=== PATIENT | male | born 1935 | race Caucasian/White ===

== ENCOUNTER 2019-06-25 13:00 | Emergency (ER) | payer MEDICARE, SELFPAY ==
--- NOTE | ~2019-06-25 | XR_ITS ---
EXAMINATION: XR chest 1V portable INDICATION: Shortness of breath and lightheadedness TECHNIQUE: Portable AP chest at 1352 hours COMPARISON: None available FINDINGS: There is subtle patchy opacities of the lung bases. Cardiomegaly is noted. No pleural effus ion or pneumothorax is identified. Median sternotomy wires and mediastinal surgical clips are seen, l ikely from prior coronary artery bypass grafting. IMPRESSION: 1. Bibasilar airspace opacities, consistent with atelectasis versus pneumonia. Reviewed, dictated and finalized at location B.
[2019-06-25 13:05] VITALS: BP 152/65; PULSE 82; RESP 18; TEMP 36.2; O2SAT 96
--- NOTE | 2019-06-25 13:33 | ECG_ITS ---
Measurements Intervals [place] Rate: 70 P: 53 [place]: 183 QRS: -19 QRSD: 137 T: 30 QT: 422 QTc: 457 Interpretive Statements SINUS RHYTHM WITH MARKED SINUS ARRHYTHMIA RIGHT BUNDLE BRANCH BLOCK BASELINE ARTIFACT- I, III, AVL ABNORMAL ECG Electronically Signed On 06-25-2019 14:50:43 CDT by Santiago Bateman D.O.
--- NOTE | 2019-06-25 13:45 | ED.DIZZY ---
HPI - Dizziness General Chief Complaint: Dizziness Stated Complaint: dizzy/weak Time Seen by Provider: 06/25/19 13:27 Source: patient and RN notes reviewed Mode of arrival: ambulatory Limitations: no limitations History of Present Illness HPI Narrative: Pt is a 83 y/o male with a Hx of CAD and a 5 vessel CABG, who presents to the ED with c/o intermittent dizziness starting several months ago. He notes that he has been experiencing SOB and dizziness upon exertion for the past several months. Pt describes his dizziness as lightheadedness. He states that he had been working in his yard for an hour yesterday when he suddenly had to stop due to him becoming too lightheaded. Pt notes that he also experiences lightheadedness with changes in position. He states that he became SOB while walking into the ED this afternoon. 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 Hodges, due to his symptoms, and states that he was advised to come to the ED. He also reports recent constipation, but denies any CP, chest pressure, cough, LE edema, or decreased intake. Pt is not currently taking any blood thinners. MD elicited complaint: dizziness Onset (ago): month(s) (several) Timing: episodic Description: lightheadedness Context: change in body position and exertion Exacerbating factors: change in body position and exertion Associated symptoms: other (dyspnea on exertion; constipation) Related Data Home Medications Medication Instructions Recorded Confirmed blood sugar diagnostic #10 each 05/28/19 donepezil 5 mg tablet 5 mg PO .QHS tablet 05/28/19 ezetimibe 10 mg tablet 10 mg PO DAILY 05/28/19 fenofibrate 160 mg tablet 160 mg PO DAILY 05/28/19 gabapentin 600 mg tablet 600 mg PO TID tablet 05/28/19 insulin lispro 100 unit/mL 5 unit SUB-Q .QAC ml 05/28/19 subcutaneous pen lancets #50 each 05/28/19 losartan 50 mg tablet 50 mg PO DAILY 05/28/19 metformin 500 mg tablet 500 mg PO BID 05/28/19 metoprolol tartrate 25 mg tablet 25 mg PO DAILY 05/28/19 sertraline 50 mg tablet 50 mg PO DAILY 05/28/19 simvastatin 20 mg tablet 20 mg PO DAILY 05/28/19 evolocumab 140 mg/mL subcutaneous 140 mg SUB-Q .Twice a Month ml 06/04/19 pen injector glipizide 5 mg PO DAILY 06/25/19 insulin degludec [Tresiba U-100 74 unit SUBCUT HS 06/25/19 Insulin] Allergies Allergy/AdvReac Type Severity Reaction Status Date / Time No Known Allergies Allergy Mild Unverified 06/25/19 14:19 Review of Systems Review of Systems: All systems reviewed & are unremarkable except as noted in HPI and below Constitutional: Constitutional: Denies other (decreased intake) Cardiovascular: Cardiovascular: Denies chest pain, Denies leg edema and Denies other (chest pressure) Respiratory: Respiratory: Denies cough and Reports dyspnea on exertion Gastrointestinal: Gastrointestinal: Reports constipation Neurologic: Reports dizziness PMFSH Past Medical History Medical History (Updated 06/25/19 @ 16:26 by Mitesh Mathis MD) 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 Chronic GERD Coronary artery disease involving [place] coronary artery of [place] heart Dementia Depression HLD (hyperlipidemia) HTN (hypertension) Squamous cell carcinoma in situ (SCCIS) Type 2 diabetes mellitus with diabetic neuropathy, unspecified Surgical History Surgical History H/O hernia repair S/P CABG (coronary artery bypass graft) Social History Social History Smoking packs per day: 1 Smoking cigarettes per day: 20.0 Years smoked: 30 Smoking pack-years: 30.00 Smoking status: Former smoker Tobacco type: cigarettes Second hand tobacco smoke exposure: No Smoking end date: 03/31/1966 Alcohol intake: current Drinks per week: 2 Substance use: never Substance use type: does not use Gender identity (if verbalized by the patient): Male Exam Narrative: Exam Narrative
[2019-06-25 13:56] LABS: Basophils Absolute Auto 0.1 K/mm3 (0.0-0.1); Basophils Percent Auto 0.7 % (0.2-1.2); Eosinophils Absolute Auto 0.1 K/mm3 (0-0.3); Eosinophils Percent Auto 0.8 % (0-4.4); Hematocrit 38.6 % (42.0-52.0); Immature Granulocyte Absolute 0.02 K/mm3 (0.00-0.031); Immature Granulocyte Percent A 0.2 % (0-0.5); Lymphocytes Absolute Auto 2.68 K/mm3 (0.9-3.2); Lymphocytes Percent Auto 28.2 % (18.3-44.2); Mean Corpuscular HGB Conc 33.7 g/dl (32-36); Mean Corpuscular Hemoglobin 32.9 pg (26-34); Mean Corpuscular Volume 97.7 fl (80-100); Mean Platelet Volume 9.5 fl (7.4-10.4); Monocytes Absolute Auto 0.8 K/mm3 (0.1-0.6); Monocytes Percent Auto 8.4 % (2.6-8.5); Neutrophils Absolute Auto 5.9 K/mm3 (1.3-6.7); Neutrophils Percent Auto 61.7 % (45.5-73.1); Platelet Count Result 273 k/mm3 (150-375); Red Blood Count 3.95 M/mm3 (4.6-6.20); Red Cell Distribution Width 12.8 % (11.5-14.5); White Blood Count 9.5 K/mm3 (4.5-10.0)
[2019-06-25 14:06] LABS: Prothrombin Time 13.1 Seconds (11.1-14.7)
[2019-06-25 14:08] LABS: Blood Urea Nitrogen 17 mg/dL (9-20); Calcium 9.2 mg/dL (8.4-10.2); Carbon Dioxide 24 mmol/L (22-30); Chloride 104 mmol/L (98-107); Estimated CRCL calculation 52 ml/min; Estimated Glomerular Filt Rate > 60; Glucose 185 mg/dL (75-110); Potassium 4.2 mmol/L (3.4-5.0); Sodium 135 mmol/L (137-145)
[2019-06-25 14:17] VITALS: BP 102/55; PULSE 78; RESP 16; O2SAT 97
[2019-06-25 14:18] VITALS: BP 128/72; PULSE 86; RESP 20; O2SAT 97
[2019-06-25 14:20] LABS: Troponin I < 0.012 ng/mL (0.000-0.034)
[2019-06-25 15:48] VITALS: BP 145/62; PULSE 78; RESP 12; O2SAT 98
[2019-06-25 16:24] VITALS: BP 131/99; PULSE 88; RESP 24; O2SAT 98
== END 2019-06-25 16:35 | disposition home or self-care (01) ==
PROVIDERS: Emergency Provider Emergency Medicine; PCP Family Medicine
DX: R42 Dizziness and giddiness (principal); R06.00 Dyspnea, unspecified; I25.10 Atherosclerotic heart disease of native coronary artery without angina pectoris; Z95.1 Presence of aortocoronary bypass graft; K22.70 Barrett's esophagus without dysplasia; K21.9 Gastro-esophageal reflux disease without esophagitis; F32.9 Major depressive disorder, single episode, unspecified; E78.5 Hyperlipidemia, unspecified; I10 Essential (primary) hypertension; E11.40 Type 2 diabetes mellitus with diabetic neuropathy, unspecified; Z79.4 Long term (current) use of insulin; Z79.84 Long term (current) use of oral hypoglycemic drugs; Z87.891 Personal history of nicotine dependence; I45.10 Unspecified right bundle-branch block; R94.31 Abnormal electrocardiogram [ECG] [EKG]; R91.8 Other nonspecific abnormal finding of lung field
CPT/HCPCS: 36415; 71045; 80048; 84484; 85025; 85610; 85730; 93005; 99284

== ENCOUNTER 2020-07-19 15:03 | Outpatient (CLI) | payer MEDICARE, SELFPAY ==
--- NOTE | ~2020-07-19 | XR_ITS ---
EXAMINATION: XR shoulder RT min 2V DATE: 07/19/2020 15:18 INDICATION: Right shoulder pain. TECHNIQUE: 4 views of right shoulder were obtained. COMPARISON: None. FINDINGS: Bone alignment is normal. No fracture. There is mild osteoarthritis of glenohumeral joint a nd severe osteoarthritis of acromioclavicular joint. Median sternotomy wires and mediastinal surgical clips are seen, likely from prior coronary artery bypass grafting. IMPRESSION: 1. Polyarticular osteoarthritis. Reviewed, dictated and finalized at location B.
== END 2020-07-19 15:04 | disposition home or self-care (01) ==
LOC: ANHIMG 15:06
PROVIDERS: PCP Family Medicine; Visit Provider Family Medicine
DX: M19.011 Primary osteoarthritis, right shoulder (principal)
CPT/HCPCS: 73030

== ENCOUNTER 2020-09-04 10:15 | Outpatient (RCR) | payer MEDICARE, SELFPAY ==
--- NOTE | 2020-08-23 13:38 | PTOPEVAL ---
PHYSICAL THERAPY EVALUATION Thank you for referring Antonio Fang to [facility] [place] Antonio was evaluated for the dx of right shoulder adhesive capsulitis. The patient is scheduled to be seen for therapy?2 x/week for 5 weeks. Please review, sign, date and return this plan of care SOLITARIO. I agree with and certify that the following plan of care is medically necessary. Referring Physician Date Attending Provider: Andrea Canales MD *PT Outpatient Evaluation Start: 08/23/20 12:30 Freq: Status: Active Protocol: Document 08/23/20 12:36 MLV (Rec: 08/23/20 13:06 [facility] [id number]) Therapy Assessment Status Assessment Status Assessment Status Evaluation Evaluation Information Problem Diagnosis right shoulder adhesive capsulitis Onset 1-2 month ago Cause none Additional Evaluation Detail Pt reports pain at right shoulder starting without an injury. The patient has pain at superior shoulder constantly. The patient is having a lot of trouble sleeping. Pt is retired and does the yardwork, otherwise no hobbies. The patient denies trouble with shoulder prior to 2 months ago. Diagnostic Tests X-Rays For This Problem Yes: mild OA Prior Level of Function Prior Cognition/Communication Prior Communication Level No Impairment Prior Cognitive Function Memory Impaired Pain Assessment Timing of Pain Assessment Timing of Pain Assessment Assessment Pain Scale Pain Scale Used Numeric (1 - 10) Self Report Pain Assessment Right Shoulder(s) Reported Pain Level 2 Pain Description Aching,Pressure,Sharp Pain Frequency Acute Greatest Pain Intensity 4 Pain Aggravating Factors Exercise/Activity,Lifting Other Pain Aggravating Factors sidelying Pain Score Pain Score 2: Self Report Interventions Used Interventions Used By Clinicians Education,Exercise,Heat Pain Relief Interventions Used By Heat,Inactivity/Rest,Position Patient Change Upper Extremity Range of Motion General Upper Extremity Range of Motion Gross Upper Extremity Range of Motion shoulder active motion: left- Comments flexion 155', abduction 165', extension 72', ER 68', IR 80' right flexion 125', abduction 94', extension 73', ER 39', IR 36' *cynthia elbows and w
--- NOTE | 2020-09-06 08:10 | PCPTNOTE ---
Patient did not show up for scheduled appointment this date; called and spoke with patient's who stated patient was already on his way for his appointment even though he knows he was late. Informed the front services agent to re-issue appointment schedule.
--- NOTE | 2020-09-12 08:28 | PCPTNOTE ---
Patient did not show up for scheduled appointment this date. Left voicemail about missed appointment and reminded Pt of upcoming appointment on 09/14/2020 @ 08:45am.
--- NOTE | 2020-09-14 09:14 | PCPTNOTE ---
Patient did not show up for scheduled appointment this date. Called and spoke with Pt's , she stated he forgot about his appointment. Pt's also informed they will be out of town until the beginning of September and needs to cancel his appointments for next week. Informed therapist. This is Pt's third N/S.
--- NOTE | 2020-10-06 10:35 | PCPTNOTE ---
PHYSICAL THERAPY DISCHARGE Attending Provider: Andrea Canales MD Patient:Antonio Fang Date of :1935 Patient has not returned for any further treatments since 09/04/2020, therefore he will be discharged at this time. Patient?s initial visit was on 08/23/2020 12:30 and he had a total of 2 visits. The goals have not been met. Memory deficits affect compliance in home and to show for appts. Thank you for referring this patient to [facility]. Please review, sign, date and return this discharge summary SOLITARIO. I have been updated about the patient's current status and I agree with discharge from the above service at this time. Referring Physician Date
== END 2020-11-07 13:52 | disposition home or self-care (01) ==
LOC: ANHPT 10:15
PROVIDERS: PCP Family Medicine; Visit Provider Orthopaedic Surgery
DX: M75.00 Adhesive capsulitis of unspecified shoulder (principal)
CPT/HCPCS: 97110; 97140; 97162

== ENCOUNTER 2020-11-04 15:25 | Emergency (ER) | payer MEDICARE, SELFPAY ==
[2020-11-04] VITALS (9 sets, daily range): BP systolic 127–163; BP diastolic 74–83; PULSE 62–77; RESP 12–20; TEMP 37.2; O2SAT 97–100
--- NOTE | ~2020-11-04 | CT_ITS ---
EXAMINATION: CT brain wo con DATE: 11/04/2020 16:12 INDICATION: Confusion. TECHNIQUE: Computed tomography (CT) of the head was performed without intravenous contrast. The mA wa s adjusted according to patient size. Iterative reconstruction technique was employed. The dose-lengt h product was 681.00 mGy-cm. COMPARISON: Head CT 12/30/2008 FINDINGS: There are scattered areas of low attenuation in the cerebral white matter, which is within normal limits for the patient's age. There is no intracranial hemorrhage, acute infarction, or abnorm al intracranial mass lesion. The ventricles are normal in size. There are likely changes of ocular le ns replacement surgeries. There is mild mucosal thickening in the paranasal sinuses. There is a trace right mastoid effusion. IMPRESSION: 1. Normal aging brain. Reviewed, dictated and finalized at location A. IMPRESSION: 1. Normal aging brain.
--- NOTE | ~2020-11-04 | XR_ITS ---
EXAMINATION: XR chest 2V DATE: 11/04/2020 16:07 INDICATION: Transient alteration of awareness. TECHNIQUE: Frontal and lateral views of the chest were obtained. COMPARISON: Chest single view 06/25/2019, CT abdomen and pelvis 05/30/2011 FINDINGS: The lung volumes are normal. There are are mild chronic interstitial opacities in all lung zones with a peripheral and lower lung predominance. No pleural effusion or pneumothorax. The heart s ize is normal. Median sternotomy wires and mediastinal surgical clips are seen, likely from prior cor onary artery bypass grafting. IMPRESSION: 1. Stable mild chronic interstitial lung disease. Reviewed, dictated and finalized at location A.
--- NOTE | 2020-11-04 15:29 | ECG_ITS ---
Measurements Intervals [place] Rate: 72 P: 63 [place]: 186 QRS: -21 QRSD: 135 T: 19 QT: 421 QTc: 462 Interpretive Statements SINUS RHYTHM WITH SINUS ARRHYTHMIA ATRIAL PREMATURE COMPLEXES RIGHT BUNDLE BRANCH BLOCK ABNORMAL ECG Electronically Signed On 11-04-2020 16:58:07 CDT by Santiago Bateman D.O.
[2020-11-04 16:03] LABS: Basophils Absolute Auto 0.1 K/mm3 (0.0-0.1); Basophils Percent Auto 0.9 % (0.2-1.2); Eosinophils Absolute Auto 0.1 K/mm3 (0-0.3); Eosinophils Percent Auto 1.1 % (0-4.4); Hematocrit 39.3 % (42.0-52.0); Hemoglobin 13.4 g/dL (14.0-18.0); Immature Granulocyte Absolute 0.03 K/mm3 (0.00-0.031); Immature Granulocyte Percent A 0.3 % (0-0.5); Lymphocytes Absolute Auto 3.11 K/mm3 (0.9-3.2); Lymphocytes Percent Auto 34.6 % (18.3-44.2); Mean Corpuscular HGB Conc 34.1 g/dl (32-36); Mean Corpuscular Hemoglobin 32.4 pg (26-34); Mean Corpuscular Volume 95.2 fl (80-100); Mean Platelet Volume 9.3 fl (7.4-10.4); Monocytes Absolute Auto 0.7 K/mm3 (0.1-0.6); Monocytes Percent Auto 7.7 % (2.6-8.5); Neutrophils Percent Auto 55.4 % (45.5-73.1); Platelet Count Result 279 k/mm3 (150-375); Red Blood Count 4.13 M/mm3 (4.6-6.20); Red Cell Distribution Width 12.8 % (11.5-14.5)
[2020-11-04 16:16] LABS: Alanine Aminotransferase 23 U/L (4-50); Albumin Level 4.5 g/dL (3.5-5.1); Alkaline Phosphatase 60 U/L (38-126); Anion Gap 12 mmol/L (8-16); Aspartate Amino Transferase 33 U/L (17-59); Bilirubin,Total 0.5 mg/dL (0.2-1.3); Blood Urea Nitrogen 14 mg/dL (9-20); Calcium 9.9 mg/dL (8.4-10.2); Carbon Dioxide 20 mmol/L (22-30); Chloride 103 mmol/L (98-107); Estimated CRCL calculation 64 ml/min; Estimated Glomerular Filt Rate > 60; Glucose 150 mg/dL (65-110); Potassium 4.1 mmol/L (3.4-5.0); Sodium 135 mmol/L (137-145)
--- NOTE | 2020-11-04 16:18 | PC.NURSE ---
Patient attempting to void at this time.
[2020-11-04 16:30] LABS: Add Urine Microscopic? NO; Appearance Urine Clear (Clear); Bilirubin Urine Negative (Negative); Blood Urine Negative (Negative); Color Urine Straw (Yellow); Glucose Urine UA Negative (Negative); Ketones Urine Negative (Negative); Leukocyte Esterase Ur Negative LEU/UL (Negative); Nitrate Urine Negative (Negative); Protein Urine Negative (Negative); Specific Grav Ur 1.008 (1.001-1.035); Urobilinogen Urine Negative mg/dL (<2.0)
--- NOTE | 2020-11-04 19:08 | ED.AMS ---
HPI - Altered Mental Status General Chief Complaint: Altered Mental Status Stated Complaint: ALTERED Time Seen by Provider: 11/04/20 15:54 Source: patient and family Mode of arrival: ambulatory Limitations: clinical condition History of Present Illness HPI narrative: 85-year-old male History of dementia per chart but his son who is here with him says that although he has been having memory and occasional conduct issues for a couple of years he does not have a clear diagnosis Brought in by son because today was effectively a bad day Apparently patient was supposed to go on some kind of a trip with his but was giving her a hard time Patient himself has no complaints and does not feel like he has been ill Currently he is pleasant and cooperative and alert Related Data Home Medications Medication Instructions Recorded Confirmed ezetimibe 10 mg tablet 10 mg PO DAILY 05/28/19 10/03/20 losartan 50 mg tablet 50 mg PO DAILY 05/28/19 10/03/20 Allergies Allergy/AdvReac Type Severity Reaction Status Date / Time No Known Allergies Allergy Mild Verified 11/04/20 15:42 Review of Systems Review of Systems: All systems reviewed & are unremarkable except as noted in HPI and below Constitutional: Constitutional: Reports no additional constitutional complaints, Denies chills, Denies fatigue, Denies fever(s), Denies headache(s) and Denies weakness Eyes: Eyes: Reports no additional eye complaints and Denies change in vision ENT: Denies headache(s) and Denies sore throat Cardiovascular: Cardiovascular: Denies chest pain and Denies dyspnea Respiratory: Respiratory: Denies cough and Denies dyspnea Gastrointestinal: Gastrointestinal: Denies abdominal pain, Denies diarrhea and Denies vomiting Genitourinary: Genitourinary: Denies dysuria and Denies urinary frequency Musculoskeletal: Musculoskeletal: Denies deformity, Denies arthralgias, Denies joint swelling and Denies numbness Integumentary/Breasts: Skin/Breast: Denies rash and Denies wounds Neurologic: Denies headache(s), Denies focal weakness and Denies numbness Psychiatric: Psychiatric: Reports as per HPI Endocrine: Endocrine: Reports no additional endocrine complaints Hematologic/Lymphatic: Hematologic/Lymphatic: Reports no additional hematologic/lymphatic complaints Allergic/Immunologic: Allergic/Immunologic: Reports no additional allergic/immunologic complaints PMFSH Past Medical History Medical History 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 CAD (coronary artery disease) Chronic GERD CKD (chronic kidney disease), stage III Coronary artery disease involving [place] coronary artery of [place] heart Dementia Dementia Depression Hemoglobin A1c greater than 9.0% A1c = 10.4 04/10/20 HLD (hyperlipidemia) HTN (hypertension) PAF (paroxysmal atrial fibrillation) 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, unspecified Type 2 diabetes mellitus with other diabetic kidney complication Surgical History Surgical History H/O hernia repair S/P CABG (coronary artery bypass graft) Family History Family History Mother Hypertension Family history of diabetes mellitus in first degree relative Father Family history of coronary artery disease Other Depression Family history of thyroid disease Social History Social History Smoking packs per day: 1 Smoking cigarettes per day: 20.0 Years smoked: 30 Smoking pack-years: 30.00 Smoking status: Former smoker Tobacco type: cigarettes Second hand tobacco smoke exposure: No Smoking end date: 03/31/1966 Alcohol intake: current Drinks per week: 2 Substance use: never Substance use type: does not u
== END 2020-11-04 19:19 | disposition home or self-care (01) ==
PROVIDERS: Emergency Medicine; Emergency Provider Emergency Medicine; PCP Family Medicine
DX: F03.90 Unspecified dementia, unspecified severity, without behavioral disturbance, psychotic disturbance, mood disturbance, and anxiety (principal); K22.70 Barrett's esophagus without dysplasia; I25.10 Atherosclerotic heart disease of native coronary artery without angina pectoris; K21.9 Gastro-esophageal reflux disease without esophagitis; I12.9 Hypertensive chronic kidney disease with stage 1 through stage 4 chronic kidney disease, or unspecified chronic kidney disease; E11.22 Type 2 diabetes mellitus with diabetic chronic kidney disease; N18.30 Chronic kidney disease, stage 3 unspecified; E78.5 Hyperlipidemia, unspecified; Z95.1 Presence of aortocoronary bypass graft; Z79.84 Long term (current) use of oral hypoglycemic drugs; Z79.899 Other long term (current) drug therapy; Z87.891 Personal history of nicotine dependence; J84.9 Interstitial pulmonary disease, unspecified; I49.1 Atrial premature depolarization; I45.10 Unspecified right bundle-branch block
CPT/HCPCS: 36415; 70450; 71046; 80053; 81003; 84443; 85025; 93005; 99284

== ENCOUNTER 2020-11-22 14:32 | Outpatient (CLI) | payer MEDICARE, SELFPAY ==
--- NOTE | ~2020-11-22 | US_ITS ---
EXAMINATION: US carotid duplex BI DATE: 11/22/2020 15:12 INDICATION: Transient ischemic attack. TECHNIQUE: Grayscale, color Doppler, and pulsed Doppler images of the cervical carotid arteries were obtained. The degree of vessel stenosis is placed in one of the following categories: normal, <50%, 5 0-69%, >=70% but less than near-occlusion, near-occlusion, or total occlusion. Note that percent sten osis relative to normal distal artery lumen diameter is indirectly measured from velocity measurement s as described by Mj, et al. Radiology 2003; 229:340-346. COMPARISON: Ultrasound 09/18/2016 FINDINGS: RIGHT: The right common carotid artery (CCA) peak systolic velocity (PSV) is 111 cm/s. The right internal ca rotid artery (ICA) PSV is 125 cm/s. The right ICA end-diastolic velocity (EDV) is 9 cm/s. The right I CA/CCA PSV ratio is 1.1. Grayscale and color Doppler images yield an estimate of <50% diameter reduct ion from plaque in the ICA. There is no visible flow in the right vertebral artery. LEFT: The left CCA PSV is 106 cm/s. The left ICA PSV is 98 cm/s. The left ICA EDV is 24 cm/s. The left ICA/ CCA PSV ratio is 0.9. Grayscale and color Doppler images yield an estimate of <50% diameter reduction from plaque in the ICA. There is antegrade flow in the left vertebral artery. IMPRESSION: 1. <50% stenosis in the right internal carotid artery. 2. <50% stenosis in the left internal carotid artery. 3. Right vertebral artery flow not visualized, which may be secondary to thrombosis or small artery s ize. Reviewed, dictated and finalized at location B. IMPRESSION: 1. <50% stenosis in the right internal carotid artery. 2. <50% stenosis in the left internal carotid artery. 3. Right vertebral artery flow not visualized, which may be secondary to thromb osis or small artery size.
== END 2020-11-22 14:33 | disposition home or self-care (01) ==
PROVIDERS: PCP Family Medicine; Visit Provider Family Medicine
DX: I65.23 Occlusion and stenosis of bilateral carotid arteries (principal)
CPT/HCPCS: 93880

== ENCOUNTER → 2021-05-07 11:43 | Outpatient (CLI) | payer MEDICARE, SELFPAY ==
--- NOTE | ~2021-05-07 | XR_ITS ---
XR_[id number]_CR DATE: 05/07/2021 12:08 INDICATION: Bilateral pleural chest pain TECHNIQUE: PA chest. 3 views of right ribs. 3 views of left ribs. COMPARISON: 11/04/2020 PA and lateral chest FINDINGS: Status post sternotomy. There is mild dextroscoliosis and degenerative spurring of the thoracic spine. No fracture or bone destruction of left or right ribs is detected. Normal heart size. No hilar or mediastinal enlargement. Chronic mild interstitial changes are noted, best demonstrated in in the lateral right mid and lower lung zones, stable since 11/04/2020. No pulmonary infiltrate or consolidation, pleural effusion or pulmonary vascular congestion or pneumo thorax. IMPRESSION: No left or right rib fracture or bone destruction is detected Status post sternotomy Mild dextroscoliosis and degenerative spurring of the thoracic spine No active cardiopulmonary disease. Chronic stable pulmonary interstitial changes Reviewed, dictated and finalized at Location A. Reviewed, dictated and finalized at location A. [facility]ION[facility] IMPRESSION: No left or right rib fracture or bone destruction is detected Status post sternotomy Mild dextroscoliosis and degenerative spurring of the thoracic spine No active cardiopulmonary disease. Chronic stable pulmonary interstitial change s
== END ==
PROVIDERS: PCP Family Medicine; Visit Provider Family Medicine
DX: R07.81 Pleurodynia (principal); R91.8 Other nonspecific abnormal finding of lung field
CPT/HCPCS: 71111

== ENCOUNTER 2021-11-07 12:29 | Emergency (ER) | payer MEDICARE, SELFPAY ==
[2021-11-07] VITALS (16 sets, daily range): BP systolic 138–168; BP diastolic 63–82; PULSE 61–75; RESP 13–22; TEMP 36.6; O2SAT 90–98
--- NOTE | ~2021-11-07 | CT_ITS ---
EXAMINATION: CT brain wo con DATE: 11/07/2021 14:37 INDICATION: High blood sugar. Confusion. TECHNIQUE: Computed tomography (CT) of the head was performed without intravenous contrast. The dose- length product was 681.00 mGy-cm. Automated exposure control and iterative reconstruction technique w ere employed. COMPARISON: CT dated 11/04/2020 FINDINGS: Generalized atrophy. There are scattered mild periventricular and subcortical white matter changes, most likely related to small vessel ischemic disease (microangiopathy). There is intracrania l atherosclerosis. No acute intracranial hemorrhage, infarction, mass or mass effect. Basilar cistern s are patent. Left maxillary sinus disease. Mastoids are pneumatized. No depressed skull fractures. IMPRESSION: 1. No acute intracranial abnormality. 2: Chronic age-related findings. Reviewed, dictated and finalized at location A.
[2021-11-07 13:14] LABS: Basophils Absolute Auto 0.1 K/mm3 (0.0-0.1); Eosinophils Absolute Auto 0.1 K/mm3 (0-0.3); Eosinophils Percent Auto 1.7 % (0-4.4); Hematocrit 40.6 % (42.0-52.0); Hemoglobin 13.5 g/dL (14.0-18.0); Immature Granulocyte Absolute 0.02 K/mm3 (0.00-0.031); Immature Granulocyte Percent A 0.3 % (0-0.5); Lymphocytes Absolute Auto 2.11 K/mm3 (0.9-3.2); Lymphocytes Percent Auto 29.6 % (18.3-44.2); Mean Corpuscular HGB Conc 33.3 g/dl (32-36); Mean Corpuscular Hemoglobin 32.1 pg (26-34); Mean Corpuscular Volume 96.4 fl (80-100); Mean Platelet Volume 9.3 fl (7.4-10.4); Monocytes Absolute Auto 0.6 K/mm3 (0.1-0.6); Neutrophils Absolute Auto 4.2 K/mm3 (1.3-6.7); Neutrophils Percent Auto 58.4 % (45.5-73.1); Platelet Count Result 270 k/mm3 (150-375); Red Blood Count 4.21 M/mm3 (4.6-6.20); Red Cell Distribution Width 12.3 % (11.5-14.5); White Blood Count 7.1 K/mm3 (4.5-10.0)
[2021-11-07 13:26] LABS: Alanine Aminotransferase 28 U/L (6-50); Albumin Level 4.3 g/dL (3.5-5.1); Alkaline Phosphatase 57 U/L (38-126); Anion Gap 11 mmol/L (8-16); Aspartate Amino Transferase 31 U/L (17-59); Bilirubin,Total 0.6 mg/dL (0.2-1.3); Blood Urea Nitrogen 23 mg/dL (9-20); Calcium 9.6 mg/dL (8.4-10.2); Carbon Dioxide 24 mmol/L (22-30); Chloride 99 mmol/L (98-107); Estimated CRCL calculation 54 ml/min; Estimated Glomerular Filt Rate > 60; Glucose 213 mg/dL (65-110); Phosphorus 3.8 mg/dL (2.5-4.5); Potassium 4.4 mmol/L (3.4-5.0); Sodium 134 mmol/L (137-145)
[2021-11-07 13:27] LABS: Lactic Acid Reflex 1.3 mmol/L (0.7-2.0)
[2021-11-07 14:32] LABS: Appearance Urine Clear (Clear); Bilirubin Urine Negative (Negative); Blood Urine Negative (Negative); Color Urine Yellow (Yellow); Glucose Urine UA Negative (Negative); Ketones Urine Negative (Negative); Leukocyte Esterase Ur Negative LEU/UL (Negative); Nitrate Urine Negative (Negative); Protein Urine Negative (Negative); Urobilinogen Urine 0.2 mg/dL (<2.0); pH Urine 5.5 (5.0-9.0)
[2021-11-07 14:43] LABS: Add Urine Microscopic? NO
--- NOTE | 2021-11-07 14:53 | ED.GENADULT ---
HPI - General Adult General Chief complaint: Recheck/Abnormal Lab/Rx Stated complaint: high blood sugar Time Seen by Provider: 11/07/21 13:47 History of Present Illness HPI narrative: per family pt aggitated less sleep last night got up tried to get dressed to leave pt says feels fine didn't have trouble sleeping, son in room got call from his mom saying issues, h/o dementia and getting worse ? taking meds, has macular degeneration unable to track as well son aware likely needs help for them at home just hasn't called primary doc about it and pt open to help, aware looking out for him and he normally takes 74units insulin in am only ate like normal no sym ptoms cp/sob/nv/d/urine chagnes/gerardo/neuro chagnes otherwise/truama med chagnes and he never checks his sugars and b/c ? taking meds decided to check today first time using their machine in some time and elevated so came in Related Data Home Medications Medication Instructions Recorded Confirmed ezetimibe 10 mg tablet (Zetia) 10 mg PO DAILY 05/28/19 09/25/21 losartan 50 mg tablet 50 mg PO DAILY 05/28/19 09/25/21 Allergies Allergy/AdvReac Type Severity Reaction Status Date / Time No Known Allergies Allergy Mild Verified 11/07/21 13:50 Review of Systems Constitutional: Comments: CONSTITUTIONAL: Denies fever, chills, or sweats. EYES: Denies visual changes, redness, or discharge. ENT: Denies rhinorrhea, congestion, sore throat, or otalgia. CARDIOVASCULAR: Denies chest pain, palpitations, or edema. RESPIRATORY: Denies cough or dyspnea. GASTROINTESTINAL: Denies abdominal pain, nausea, vomiting, or diarrhea. GENITOURINARY: Denies dysuria or hematuria. SKIN: Denies rash or itching. MUSCULOSKELETAL: Denies back pain, joint pain, or myalgia. NEUROLOGIC: Denies headache, numbness, or weakness. PSYCHIATRIC: Denies anxiety or depression. 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 CAD (coronary artery disease) Chronic GERD CKD (chronic kidney disease), stage III Coronary artery disease involving [place] coronary artery of [place] heart Dementia Dementia Depression Hemoglobin A1c greater than 9.0% A1c = 10.4 1/11/21 HLD (hyperlipidemia) HTN (hypertension) PAF (paroxysmal atrial fibrillation) 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, unspecified Type 2 diabetes mellitus with other diabetic kidney complication Surgical History Surgical History H/O hernia repair S/P CABG (coronary artery bypass graft) Family History Family History Mother Hypertension Family history of diabetes mellitus in first degree relative Father Family history of coronary artery disease Other Depression Family history of thyroid disease Social History Social History Smoking packs per day: 1 Smoking cigarettes per day: 20.0 Years smoked: 30 Smoking pack-years: 30.00 Smoking status: Never smoker Tobacco type: cigarettes Second hand tobacco smoke exposure: No Smoking end date: 03/31/1966 Alcohol intake: current Drinks per week: 2 Substance use: never Substance use type: does not use Gender identity (if verbalized by the patient): Male Sexual Orientation (if Verbalized by the Patient): Straight or Heterosexual Exam Const: Other: APPEARANCE: Well appearing, no pain in distress, well-nourished. Head normocephalic atraumtaic. EYES: PERRLA/EOMI, conjunctivae very clear. NOSE: Normal no drainage EARS:TMS clear Kelly Sheldon, with good light reflex. THROAT: Pharynx clear, no exudate. NECK: Supple. No adenopathy, no masses. RESPIRATORY: Airway patent, repsirations nonlabored. Clear to auscultation bilaterally, no rales,
== END 2021-11-07 15:20 | disposition home or self-care (01) ==
PROVIDERS: Emergency Provider Emergency Medicine; PCP Family Medicine
DX: F03.90 Unspecified dementia, unspecified severity, without behavioral disturbance, psychotic disturbance, mood disturbance, and anxiety (principal); E11.22 Type 2 diabetes mellitus with diabetic chronic kidney disease; I25.10 Atherosclerotic heart disease of native coronary artery without angina pectoris; K21.9 Gastro-esophageal reflux disease without esophagitis; I12.9 Hypertensive chronic kidney disease with stage 1 through stage 4 chronic kidney disease, or unspecified chronic kidney disease; N18.30 Chronic kidney disease, stage 3 unspecified
CPT/HCPCS: 36415; 70450; 80053; 81003; 82010; 83605; 83735; 84100; 85025; 99284

== ENCOUNTER 2022-02-01 18:42 | Observation (INO) | payer MEDICARE, SELFPAY ==
[2022-02-01] VITALS (33 sets, daily range): BP systolic 141–163; BP diastolic 66–96; PULSE 72–92; RESP 11–30; TEMP 36.3; O2SAT 93–100
--- NOTE | ~2022-02-01 | XR_ITS ---
EXAMINATION: XR barium swallow modified DATE: 02/04/2022 09:55 INDICATION: Cough when eating. TECHNIQUE: The patient was given barium-containing material of multiple consistencies to swallow by t tami speech pathologist while I performed fluoroscopy. Fluoroscopy exposure time was 2.4 minutes. The n umber of fluoroscopy images saved to the PACS was 1. Dose-area product was 1.859 Gy-cm^2. FINDINGS: There was trace laryngeal penetration with uncontrolled thin liquids. IMPRESSION: 1. Trace laryngeal penetration with uncontrolled thin liquids. 2. Please refer to the speech therapy report for recommendations. Reviewed, dictated and finalized at location A. OPERATOR
--- NOTE | ~2022-02-01 | CT_ITS ---
EXAMINATION: CT cervical spine wo con DATE: 02/01/2022 19:13 INDICATION: Fall. TECHNIQUE: Computed tomography (CT) of the cervical spine was performed without intravenous contrast. Automated exposure control and iterative reconstruction technique were employed. Exam dose: 520.55 mGy-cm total exam DLP. COMPARISON: None FINDINGS: C1 and C2 are normally aligned and the odontoid process is intact. There is degenerative ch altagracia at the joint between the anterior arch of C1 and the odontoid process of C2. There is mild degenerative disease at C2-3 and C3-4. There is severe degenerative disc disease at C4-5, with posterior as well as anterior spurring. There is moderately severe degenerative disc disease and mild anterolisthesis at C5-6 and C6-7. C1 and C2 are normally aligned and the odontoid process is intact. No recent fracture or dislocation or locked facet or prevertebral soft tissue swelling is detected. There is fusion at the right C5-6 apophyseal joint and prominent degenerative change at the remaining apophyseal joints of the cervical spine. There is uncovertebral joint spurring throughout the cervical spine, particularly severe at C4-5 bila terally, also on the right at C3-4 and C5-6. IMPRESSION: Cervical spondylosis No recent fracture, dislocation or locked facet or prevertebral soft tissue swelling Reviewed, dictated and finalized at Location [facility]. Reviewed, dictated and finalized at location A. IMPRESSION: Cervical spondylosis No recent fracture, dislocation or locked facet or prevertebral soft tissue swe lling
--- NOTE | ~2022-02-01 | XR_ITS ---
XR shoulder RT min 2V DATE: 02/01/2022 19:53 INDICATION: Right shoulder pain after injury from fall today TECHNIQUE: 3 views COMPARISON: 07/19/2020 right shoulder FINDINGS: No fracture or dislocation, periosteal reaction or bone destruction or abnormal soft tissue calcification at the right shoulder. Status post sternotomy IMPRESSION: No fracture or dislocation right shoulder Reviewed, dictated and finalized at location A.
--- NOTE | ~2022-02-01 | CT_ITS ---
EXAMINATION: CT brain wo con DATE: 02/01/2022 19:13 INDICATION: Fall. Altered mental status. Stroke protocol. TECHNIQUE: Computed tomography (CT) of the head was performed without intravenous contrast. The mA wa s adjusted according to patient size. Iterative reconstruction technique was employed. Exam dose: 68 1.00 mGy-cm total exam DLP. COMPARISON: 11/07/2021 CT brain FINDINGS: Vertebral artery and particularly prominent bilateral carotid siphon internal carotid arter y calcifications. There is nonspecific diminished attenuation of the cerebral white matter, likely du e to chronic small vessel ischemic changes. No intracranial mass lesion or hemorrhage or cerebrovascular accident is evident. CT is not sensitive for hyperacute ischemic infarct. There is central and cortical cerebral and cerebellar atrophy. No subdural or epidural hematoma. No orbital mass lesion. The mastoid air cells and included paranasal sinuses are normally developed and aerated. No fracture or bone destruction of the cranial vault. IMPRESSION: Cerebral atherosclerosis and chronic small vessel ischemic changes of cerebral white mat ter Central and cortical cerebral and cerebellar atrophy No acute intracranial finding On 01/[address] Wilson telephoned the report to emergency room physician Dr. Patel. Reviewed, dictated and finalized at Location [facility]. Reviewed, dictated and finalized at location A. IMPRESSION: Cerebral atherosclerosis and chronic small vessel ischemic changes of cerebral white matter Central and cortical cerebral and cerebellar atrophy No acute intracranial finding On 01/[address] Wilson telephoned the report to emergency room physici an Dr. Patel.
--- NOTE | ~2022-02-01 | XR_ITS ---
XR chest 1V portable DATE: 02/01/2022 19:26 INDICATION: Transient alteration of awareness. History of hypertension, coronary artery disease TECHNIQUE: Portable upright AP chest on 01/2022 at 1920 hours COMPARISON: 11/04/2020 PA and lateral chest FINDINGS: Status post sternotomy. There is mild infiltrate or atelectasis in the right mid and both lower lung zones, left greater than right. Heart size appears within normal range. Status post sternotomy and probable coronary artery bypass gr aft surgery. No pleural effusion or pulmonary vascular congestion or pneumothorax. Osteopenia. IMPRESSION: Mild right mid and bilateral lower lung infiltrate and/atelectasis, greatest in the left lower lung Status post sternotomy and probable coronary artery bypass graft surgery Reviewed, dictated and finalized at location A.
--- NOTE | ~2022-02-01 | US_ITS ---
EXAMINATION: US carotid duplex BI DATE: 02/02/2022 15:51 INDICATION: Syncope TECHNIQUE: Grayscale, color Doppler, and pulsed Doppler images of the cervical carotid arteries were obtained. The degree of vessel stenosis is placed in one of the following categories: normal, <50%, 5 0-69%, >=70% but less than near-occlusion, near-occlusion, or total occlusion. Note that percent sten osis relative to normal distal artery lumen diameter is indirectly measured from velocity measurement s as described by Mj, et al. Radiology 2003; [id number]:[id number]. COMPARISON: None. FINDINGS: RIGHT: There is calcified plaque in the proximal and mid right common carotid artery The right common carotid artery (CCA) peak systolic velocity (PSV) is 83.8 cm/s. The right internal c arotid artery (ICA) PSV is 80.5 cm/s. The right ICA end-diastolic velocity (EDV) is 18.5 cm/s. The ri t ICA/CCA PSV ratio is 1.0. Grayscale and color Doppler images yield an estimate of less than 50% d iameter reduction from plaque in the ICA. The external carotid artery (ECA) PSV is 141.9 cm/s. There is antegrade flow in the right vertebral artery. LEFT: The left CCA PSV is 92.0 cm/s. The left ICA PSV is 73.6 cm/s. The left ICA EDV is 19.5 cm/s. The left ICA/CCA PSV ratio is 0.8. Grayscale and color Doppler images yield an estimate of less than 50% diam eter reduction from plaque in the ICA. The ECA PSV is 119.0 cm/s. There is antegrade flow in the left vertebral artery. IMPRESSION: 1. Less than 50% stenosis in the right internal carotid artery. 2. Less than 50% stenosis in the left internal carotid artery. Reviewed, dictated and finalized at Location [facility]. Reviewed, dictated and finalized at location A. OPHYSICAL ENGINEER
--- NOTE | ~2022-02-01 | CT_ITS ---
EXAMINATION:CT diagnostic chest wo con DATE: 02/04/2022 10:13 INDICATION: Cough. TECHNIQUE: Computed tomography (CT) of the chest was performed without intravenous contrast. Automate d exposure control and iterative reconstruction technique were employed. The dose-length product (DLP ) was 458.87 mGy-cm. COMPARISON: None. FINDINGS: There is widespread septal thickening in the lungs with a peripheral predominance associate d with airspace and groundglass opacities. There is mild emphysema. There is peripheral honeycombing in the upper lobes and right lower lobe. Calcified right lung nodules and calcified right hilar lymph nodes are consistent with old granulomas disc disease. No pleural effusion. The heart size is normal . There are coronary artery calcifications. There are changes of coronary artery bypass grafting. No pericardial effusion. There is a small sliding hiatal hernia. There is diffuse hepatic steatosis. The re are gallstones in the gallbladder, which is distended, likely secondary to fasting. Calcifications in the spleen are consistent with old granulomatous disease. There is moderate thoracic spondylosis. IMPRESSION: 1. Diffuse lung disease, likely a combination of mild emphysema and chronic interstitial lung disease in a pattern of usual interstitial pneumonia (UIP). 2. Small sliding hiatal hernia. 3. Cholelithiasis. Gallbladder distention may be secondary to fasting. Reviewed, dictated and finalized at location A. CULTURAL SCIENTIST IMPRESSION: 1. Diffuse lung disease, likely a combination of mild emphysema and chronic int erstitial lung disease in a pattern of usual interstitial pneumonia (UIP). 2. Small sliding hiatal hernia. 3. Cholelithiasis. Gallbladder distention may be secondary to fasting.
--- NOTE | 2022-02-01 19:03 | ECG_ITS ---
Measurements Intervals [place] Rate: 72 P: 78 [place]: 192 QRS: -26 QRSD: 130 T: 34 QT: 423 QTc: 463 Interpretive Statements SINUS RHYTHM WITH SINUS ARRHYTHMIA RIGHT BUNDLE BRANCH BLOCK ABNORMAL ECG COMPARED TO ECG 11/04/2020 16:28:35 NO SIGNIFICANT CHANGES Electronically Signed On 02-01-2022 21:35:55 CDT by Santiago Bateman D.O.
[2022-02-01 19:10] LABS: Glucose Point of Care 139 mg/dl (65-105)
[2022-02-01 19:12] LABS: Basophils Absolute Auto 0.1 K/mm3 (0.0-0.1); Basophils Percent Auto 0.9 % (0.2-1.2); Eosinophils Absolute Auto 0.1 K/mm3 (0-0.3); Eosinophils Percent Auto 1.5 % (0-4.4); Hematocrit 39.3 % (42.0-52.0); Immature Granulocyte Absolute 0.03 K/mm3 (0.00-0.031); Immature Granulocyte Percent A 0.3 % (0-0.5); Lymphocytes Absolute Auto 2.52 K/mm3 (0.9-3.2); Lymphocytes Percent Auto 28.1 % (18.3-44.2); Mean Corpuscular HGB Conc 33.1 g/dl (32-36); Mean Corpuscular Hemoglobin 31.9 pg (26-34); Mean Corpuscular Volume 96.6 fl (80-100); Mean Platelet Volume 8.9 fl (7.4-10.4); Monocytes Absolute Auto 0.8 K/mm3 (0.1-0.6); Monocytes Percent Auto 9.4 % (2.6-8.5); Neutrophils Absolute Auto 5.4 K/mm3 (1.3-6.7); Neutrophils Percent Auto 59.8 % (45.5-73.1); Platelet Count Result 291 k/mm3 (150-375); Red Blood Count 4.07 M/mm3 (4.6-6.20); Red Cell Distribution Width 13.1 % (11.5-14.5)
[2022-02-01 19:21] LABS: Alanine Aminotransferase 25 U/L (6-50); Albumin Level 4.4 g/dL (3.5-5.1); Alkaline Phosphatase 51 U/L (38-126); Anion Gap 13 mmol/L (8-16); Aspartate Amino Transferase 38 U/L (17-59); Bilirubin,Total 0.5 mg/dL (0.2-1.3); Blood Urea Nitrogen 21 mg/dL (9-20); Calcium 9.4 mg/dL (8.4-10.2); Carbon Dioxide 27 mmol/L (22-30); Chloride 100 mmol/L (98-107); Estimated Glomerular Filt Rate 52; Glucose 129 mg/dL (65-110); Potassium 4.1 mmol/L (3.4-5.0); Sodium 140 mmol/L (137-145)
[2022-02-01 19:22] LABS: INR 1.1; Prothrombin Time 13.5 Seconds (11.1-14.7)
[2022-02-01 19:23] LABS: Partial Thromboplastin Time 27.5 SECONDS (22.3-36.8)
--- NOTE | 2022-02-01 19:23 | PC.NURSE ---
Patient report given to ELISABET Monahan. All questions answered and care of patient transferred.
--- NOTE | 2022-02-01 19:29 | ED.GENADULT ---
HPI - General Adult General Chief complaint: Neuro Symptoms/Deficit Stated complaint: FALL WITH AMS Time Seen by Provider: 02/01/22 19:01 Source: patient, family, EMS, RN notes reviewed and old records reviewed Mode of arrival: EMS Limitations: dementia History of Present Illness HPI narrative: This is an 86 year old male who presents from home for evaluation of confusion and fall. EMS states patient's neighbor saw patient outside in his driveway and he fell hitting his head. Patient states he was in his drive way when he felt dizzy. He told nursing staff that he felt like he couldn't walk so he fell. He is unable to describe his dizziness. He denies headache, nausea, vomiting, chest pain, abdominal pain or shortness of breath. Nursing reports patient felt like he was having difficulty talking to his neighbor. He has also been found to have intermittent confusion. On review of his recent doctor's visit, patient has been having increasing confusion and difficulty sleeping. PAtient denies any focal weakness. He does complain of right shoulder pain that is not new. Related Data Home Medications Medication Instructions Recorded Confirmed ezetimibe 10 mg tablet (Zetia) 10 mg PO DAILY 05/28/19 02/02/22 losartan 50 mg tablet 50 mg PO DAILY 05/28/19 02/02/22 Allergies Allergy/AdvReac Type Severity Reaction Status Date / Time No Known Allergies Allergy Mild Verified 02/02/22 02:59 Review of Systems Review of Systems: All systems reviewed & are unremarkable except as noted in HPI and below Constitutional: Constitutional: Denies chills, Reports fatigue and Denies fever(s) Eyes: Eyes: Denies change in vision Cardiovascular: Cardiovascular: Denies chest pain Respiratory: Respiratory: Denies chest congestion and Denies cough Gastrointestinal: Gastrointestinal: Denies abdominal pain, Denies nausea and Denies vomiting Genitourinary: Genitourinary: Denies hematuria and Denies urinary frequency Musculoskeletal: Musculoskeletal: Reports arthralgias (right shoulder) Neurologic: Reports confusion, Reports dizziness, Denies headache(s) and Denies focal weakness PMF Past Medical History Medical History 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 CAD (coronary artery disease) Chronic GERD CKD (chronic kidney disease), stage III Coronary artery disease involving douglas coronary artery of douglas heart Dementia Dementia Depression Hemoglobin A1c greater than 9.0% A1c = 10.4 04/10/20 HLD (hyperlipidemia) HTN (hypertension) PAF (paroxysmal atrial fibrillation) 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, unspecified Type 2 diabetes mellitus with other diabetic kidney complication Surgical History Surgical History H/O hernia repair S/P CABG (coronary artery bypass graft) Family History Family History (Updated 02/02/22 @ 02:48 by Sekou Newby RN) Mother Family history of diabetes mellitus in first degree relative Hypertension Father Family history of coronary artery disease Other Family history of thyroid disease Social History Social History Smoking packs per day: 2 Smoking cigarettes per day: 40.0 Years smoked: 30 Smoking pack-years: 60.00 Smoking status: Former smoker Tobacco type: cigarettes Second hand tobacco smoke exposure: No Smoking end date: 02/15/92 Alcohol intake: current Drinks per week: 3 Substance use: never Substance use type: does not use Has the Lack of Transportation Kept You From Medical Appointments or From Getting Medications?: No Within the Past 12 Months, Were You Worried Whether Your Food Would Run Out Before You Got Money to Buy More?: Never True What is Your Housing Situation Today?: I Have Hous
[2022-02-01 19:33] LABS: Troponin I 0.034 ng/mL (0.000-0.034)
[2022-02-01 20:16] LABS: SARS-CoV-2 RNA PCR Negative
[2022-02-01 20:18] LABS: Lipase 69 U/L (23-300)
[2022-02-01] MEDS: SODIUM CHLORIDE 0.9% IV 500 ML 999 ML IV CONT (21:20)
[2022-02-01 22:20] LABS: Appearance Urine Clear (Clear); Bilirubin Urine Negative (Negative); Blood Urine Negative (Negative); Color Urine Yellow (Yellow); Glucose Urine UA Negative (Negative); Ketones Urine Negative (Negative); Leukocyte Esterase Ur Negative LEU/UL (Negative); Nitrate Urine Negative (Negative); Protein Urine Negative (Negative); Urobilinogen Urine 0.2 mg/dL (<2.0); pH Urine 5.5 (5.0-9.0)
[2022-02-01 22:23] LABS: Add Urine Microscopic? NO
--- NOTE | 2022-02-01 23:11 | PM.IMHP ---
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, unspecified Type 2 diabetes mellitus with other diabetic kidney complication Surgical History Surgical History H/O hernia repair S/P CABG (coronary artery bypass graft) Family History Family History (Updated 02/02/22 @ 02:48 by Sekou Newby RN) Mother Family history of diabetes mellitus in first degree relative Hypertension Father Family history of coronary artery disease Other Family history of thyroid disease Social History Social History Smoking packs per day: 2 Smoking cigarettes per day: 40.0 Years smoked: 30 Smoking pack-years: 60.00 Smoking status: Former smoker Tobacco type: cigarettes Second hand tobacco smoke exposure: No Smoking end date: 02/15/92 Alcohol intake: current Drinks per week: 3 Substance use: never Substance use type: does not use Has the Lack of Transportation Kept You From Medical Appointments or From Getting Medications?: No Within the Past 12 Months, Were You Worried Whether Your Food Would Run Out Before You Got Money to Buy More?: Never True What is Your Housing Situation Today?: I Have Housing Are You Worried That in the Next 2 Months, You May Not Have Your Own Housing to Live In?: No Do You Have Trouble Paying Your Heating Or Electricity Bill?: No Do You Have Trouble Paying For Medicines?: No Are You Currently Unemployed and Looking for Work?: No Highest Level of Education Completed: High School Diploma/GED Do You Have Trouble With Childcare or the Care of a Family Member?: No Gender identity (if verbalized by the patient): Male Sexual Orientation (if Verbalized by the Patient): Straight or Heterosexual Spiritual care concerns: No Meds Home Medications and Allergies Home Medications Medication Instructions Recorded Confirmed Type ezetimibe 10 mg tablet (Zetia) 10 mg PO DAILY 05/28/19 01/31/22 History losartan 50 mg tablet 50 mg PO DAILY 05/28/19 01/31/22 History simvastatin 10 mg tablet 10 mg PO DAILY #90 tabs 10/15/19 01/31/22 Rx lancets #200 ea 01/17/20 01/31/22 Rx sitagliptin phosphate 100 mg 100 mg PO DAILY #90 tabs 04/13/20 01/31/22 Rx tablet (Januvia) fenofibrate 160 mg tablet 160 mg PO DAILY #90 tabs 11/24/20 01/31/22 Rx pen needle, diabetic 32 gauge x #100 ea 02/28/21 01/31/22 Rx 5/32 (BD Ultra-Fine Leni Pen Needle) glipizide 5 mg tablet See Rx Instructions .Route 07/16/21 01/31/22 Rx .COMPLEX #90 tabs sertraline 50 mg tablet (Zoloft) 50 mg PO DAILY #90 tabs 07/16/21 01/31/22 Rx memantine 5 mg tablet See Rx Instructions .Route 10/15/21 01/31/22 Rx .COMPLEX #60 tabs metformin 500 mg tablet 500 mg PO .COMPLEX #270 tabs 10/31/21 01/31/22 Rx metoprolol tartrate 25 mg tablet See Rx Instructions .Route 10/31/21 01/31/22 Rx .COMPLEX #90 tabs omeprazole 20 mg capsule,delayed See Rx Instructions .Route 10/31/21 01/31/22 Rx release .COMPLEX #90 caps triamcinolone acetonide 0.1 % 1 applic topical BID #30 grams 11/01/21 01/31/22 Rx topical cream blood sugar diagnostic (OneTouch #100 ea 11/19/21 01/31/22 Rx Verio test strips) donepezil 10 mg tablet 10 mg PO .QHS #30 tabs 12/24/21 01/31/22 Rx gabapentin 100 mg capsu
[2022-02-02] VITALS (23 sets, daily range): BP systolic 100–168; BP diastolic 56–82; PULSE 67–95; RESP 14–22; TEMP 36.3–37.1; O2SAT 95–100
--- NOTE | 2022-02-02 02:24 | PC.NURSE ---
Patient came onto 3 [facility] unit at 02:25 02/02/2022
[2022-02-02 08:14] LABS: Glucose Point of Care 137 mg/dl (65-105)
[2022-02-02] MEDS: MEMANTINE 5 MG TABLET BY MOUTH ×2 (08:42→17:03)
[2022-02-02] MEDS: SERTRALINE HCL 50 MG TABLET PO (08:42)
[2022-02-02] MEDS: METOPROLOL TARTRATE 25 MG TABLET BY MOUTH (08:42)
[2022-02-02] MEDS: FENOFIBRATE 160 MG TABLET PO (08:42)
[2022-02-02] MEDS: SIMVASTATIN 10 MG TABLET PO (08:43)
[2022-02-02] MEDS: PANTOPRAZOLE 40 MG TABLET PO (08:43)
[2022-02-02] MEDS: GABAPENTIN 100 MG CAPSULE PO ×2 (09:09→17:03)
[2022-02-02 12:09] LABS: Glucose Point of Care 190 mg/dl (65-105)
--- NOTE | 2022-02-02 14:35 | PM.IMPN ---
Progress Note: A&P Assessment and Plan (1) Frequent falls: Code(s): R29.6 - Repeated falls Status: Acute Assessment and Plan: EDHPI narrative: This is an 86 year old male who presents from home for evaluation of confusion and fall. ? EMS states patient's neighbor saw patient outside in his driveway and he fell hitting his head. ? Patient states he was in his drive way when he felt dizzy.? He told nursing staff that he felt like he couldn't walk so he fell. He is unable to describe his dizziness.? He denies headache, nausea, vomiting, chest pain, abdominal pain or shortness of breath. ? Nursing reports patient felt like he was having difficulty talking to his neighbor. ? He has also been found to have intermittent confusion. On review of his recent doctor's visit, patient has been having increasing confusion and difficulty sleeping.? PAtient denies any focal weakness. He does complain of right shoulder pain that is not new.? 02/02/2022 interval history: patient with Alzheimer dementia patient is a poor historian, patient was brought to emergency department after he had fell and struck his head, CT scan of the head and neck are negative for any acute injury, fell on the right side and had been complaining pain in the right shoulder, x-ray of the shoulder did not show any bony injury will apply Lidoderm patch will have a PT OT evaluate the patient, there is concern patient has been falling at home to further evaluate will do cardiac echo and carotid ultrasound, the PT OT evaluate the patient patient will benefit going to rehab. (2) Dizziness: Code(s): R42 - Dizziness and giddiness Status: Acute Assessment and Plan: to further evaluate will do cardiac echo and carotid ultrasound further recommendation to follow (3) Adhesive capsulitis of right shoulder: Code(s): M75.01 - Adhesive capsulitis of right shoulder Status: Chronic Assessment and Plan: patient with history adhesive capsulitis of the right shoulder now after the fall will have a PT OT evaluate the patient patient was seen by orthopedic surgeon in the because of his uncontrolled diabetes was not able to receive treatment (4) Type 2 diabetes mellitus with hyperglycemia, with long-term current use of insulin: Code(s): E11.65 - Type 2 diabetes mellitus with hyperglycemia; Z79.4 - termite renewal inspector (current) use of insulin Status: Acute (5) Dementia: Code(s): F03.90 - Unspecified dementia, unspecified severity, without behavioral disturbance, psychotic disturbance, mood disturbance, and anxiety Status: Acute Assessment and Plan: Likely Alzheimer type, possibly with superimposed vascular dementia TSH normal, B12 was mildly. Check MMA start B12 supplement (6) Abnormal chest xray: Code(s): R93.89 - Abnormal findings on diagnostic imaging of other specified body structures Status: Acute Assessment and Plan: History of dementia and intermittent severe coughing, especially while eating, suggest the possibility of aspiration doubt acute pneumonia CT chest showed diffuse lung disease likely a combination of mild emphysema and chronic interstitial lung disease in the pattern of usual interstitial pneumonia. modified barium swallow With trace laryngeal penetration with on controlled thin liquids suggesting ongoing aspiration. mildly thick liquids and regular diet. Echo 02/04/2022: EF 55-60% grade 1 diastolic dysfunction no valvular abnormality (7) Acute urinary retention: Code(s): R33.8 - Other retention of urine Status: Acute Assessment and Plan: drug side effect from donepezil likely with probable underlying BPH, given his hx February 03 discontinued donepezil Continue consider voiding trial in 24-48 hours (8) Type 2 diabetes mellitus with diabetic neuropathy: Code(s): E11.40 - Type 2 diabetes mellitus with diabetic neuropathy, unspecified Status: Acute Ass
[2022-02-02] MEDS: ARTIFICIAL TEARS OPHTH SOLN 15 ML BOTTLE 1 DROP EACH EYE (15:01)
[2022-02-02] MEDS: LIDOCAINE 5% PATCH 2 PATCH TRANSDERM (15:02)
[2022-02-02 16:43] LABS: Glucose Point of Care 147 mg/dl (65-105)
[2022-02-02] MEDS: metFORMIN HCL 500 MG TABLET 1000 MG PO (17:05)
[2022-02-02] MEDS: INSULIN GLARGINE (*BKC) 100 UNITS/ML 74 UNITS SUB-Q (20:49)
[2022-02-02] MEDS: DONEPEZIL HCL 10 MG TABLET PO (20:49)
[2022-02-02 20:57] LABS: Glucose Point of Care 176 mg/dl (65-105)
[2022-02-03] VITALS (10 sets, daily range): BP systolic 120–125; BP diastolic 52–64; PULSE 66–93; RESP 18–20; TEMP 36.4–36.6; O2SAT 93–98
--- NOTE | 2022-02-03 01:24 | PC.NURSE ---
Daylight Savings Time For Daylight Savings Time Ending in the Fall - Clocks are moved back. For Daylight Savings Time Beginning in the Spring - Clocks are moved ahead. For [facility], the time of change occurs at 0200 hrs. Time is taken from the server programmer. This entry on the patient's chart recognizes the change in time reflected during documentation. Example: 2 entries for vital signs may be charted for 0200 hrs.
[2022-02-03 08:00] LABS: Hematocrit 38.1 % (42.0-52.0); Hemoglobin 12.7 g/dL (14.0-18.0); Mean Corpuscular HGB Conc 33.3 g/dl (32-36); Mean Corpuscular Hemoglobin 31.8 pg (26-34); Mean Corpuscular Volume 95.3 fl (80-100); Mean Platelet Volume 9.1 fl (7.4-10.4); Platelet Count Result 281 k/mm3 (150-375); Red Cell Distribution Width 12.9 % (11.5-14.5); White Blood Count 9.6 K/mm3 (4.5-10.0)
[2022-02-03 08:06] LABS: Glucose Point of Care 77 mg/dl (65-105)
[2022-02-03 08:10] LABS: Hemoglobin A1C 8.7 % (<5.7)
[2022-02-03 08:20] LABS: Anion Gap 13 mmol/L (8-16); Blood Urea Nitrogen 15 mg/dL (9-20); Carbon Dioxide 26 mmol/L (22-30); Chloride 102 mmol/L (98-107); Estimated CRCL calculation 55 ml/min; Potassium 3.9 mmol/L (3.4-5.0); Sodium 141 mmol/L (137-145)
[2022-02-03 08:21] LABS: Calcium 9.1 mg/dL (8.4-10.2); Estimated Glomerular Filt Rate > 60; Glucose 73 mg/dL (65-110); Magnesium 2.2 mg/dL (1.6-2.3)
[2022-02-03] MEDS: ARTIFICIAL TEARS OPHTH SOLN 15 ML BOTTLE 1 DROP EACH EYE (08:27)
[2022-02-03] MEDS: LOSARTAN POTASSIUM 50 MG TABLET PO (08:28)
[2022-02-03] MEDS: SIMVASTATIN 10 MG TABLET PO (08:28)
[2022-02-03] MEDS: GABAPENTIN 100 MG CAPSULE PO ×2 (08:28→16:28)
[2022-02-03] MEDS: PANTOPRAZOLE 40 MG TABLET PO (08:28)
[2022-02-03] MEDS: MEMANTINE 5 MG TABLET BY MOUTH ×2 (08:29→16:28)
[2022-02-03] MEDS: glipiZIDE 5 MG TABLET PO (08:29)
[2022-02-03] MEDS: SERTRALINE HCL 50 MG TABLET PO (08:29)
[2022-02-03] MEDS: EZETIMIBE 10 MG TABLET PO (08:29)
[2022-02-03] MEDS: METOPROLOL TARTRATE 25 MG TABLET BY MOUTH (08:29)
[2022-02-03] MEDS: metFORMIN HCL 500 MG TABLET PO (08:30)
[2022-02-03] MEDS: FENOFIBRATE 160 MG TABLET PO (08:30)
[2022-02-03 11:40] LABS: Glucose Point of Care 76 mg/dl (65-105)
[2022-02-03 11:55] LABS: Glucose Point of Care 83 mg/dl (65-105)
[2022-02-03] MEDS: metFORMIN HCL 500 MG TABLET 1000 MG PO (16:28)
[2022-02-03 16:34] LABS: Glucose Point of Care 89 mg/dl (65-105)
--- NOTE | 2022-02-03 17:04 | PM.IMPN ---
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, possibly with superimposed vascular dementia check TSH and vitamin B12 (2) Abnormal chest xray: Code(s): R93.89 - Abnormal findings on diagnostic imaging of other specified body structures Status: Acute Assessment and Plan: History of dementia and intermittent severe coughing, especially while eating, suggest the possibility of aspiration doubt acute pneumonia CT chest modified barium swallow (3) Frequent falls: Code(s): R29.6 - Repeated falls Status: Acute Assessment and Plan: suspect due to combination of diabetic neuropathy, medications side effects, dementia, and deconditioning He is not dehydrated or orthostatic (4) Acute urinary retention: Code(s): R33.8 - Other retention of urine Status: Acute Assessment and Plan: drug side effect from donepezil likely with probable underlying BPH, given his hx February 03 discontinued donepezil Continue consider voiding trial in 24-48 hours (5) Type 2 diabetes mellitus with diabetic neuropathy: Code(s): E11.40 - Type 2 diabetes mellitus with diabetic neuropathy, unspecified Status: Acute Assessment and Plan: February 03 reduce Lantus from 74-20 units due to hypoglycemia and also discontinue glipizide continue bedside glucose monitoring with sliding scale as needed (6) Anemia: Code(s): D64.9 - Anemia, unspecified Status: Acute Assessment and Plan: February 03 hemoglobin 12.7 and relatively chronic check occult blood, iron, B12 (7) PAF (paroxysmal atrial fibrillation): Code(s): I48.0 - Paroxysmal atrial fibrillation Status: Acute Assessment and Plan: by history (8) CAD (coronary artery disease): Code(s): I25.10 - Atherosclerotic heart disease of [place] coronary artery without angina pectoris Status: Acute Assessment and Plan: by history (9) Benign prostatic hyperplasia with lower urinary tract symptoms: Code(s): N40.1 - Benign prostatic hyperplasia with lower urinary tract symptoms Status: Acute (10) History of open heart surgery: Code(s): Z98.890 - Other specified postprocedural states Status: Acute Subjective Date/time seen: 02/03/22 17:04 Interval history: F/U TRIP AND FALL AT HOME patient denied any dizziness. States he was outside and his feet got tangled up and he fell down. He did hit the back of his head. Denied any headache. Denied increase in falls he thinking. Denied any headache or vision changes or ringing in the ears. Denies any change in speech. Denied focal weakness or numbness. Does have chronic intermittent cough. A choking. Occur sometimes well eating. Sometimes while out walking his dog. Denied chest pain or palpitations. Denied shortness of breath. Denied wheezing or history of lung disease. Denied abdominal pain nausea or vomiting loss of appetite diarrhea or constipation. Denied blood in urine or stool. Was having difficulty urinating and Downs catheter was placed with large amount of urine obtained upon insertion. States he has been on memory medicine for the last few months as well as antidepressants for the last few months. States he was sad prior to the antidepressants. He is a little less so now. However issues with balance have worsened. Admits to memory issues. Forgets things when he starts projects at home. Has trouble with word finding. States he still drives but does not get lost. Denied incontinence. Review of Systems Review of Systems: All systems reviewed & are unremarkable except as noted in HPI and below Exam Narrative: Elderly gentleman resting in his hospital bed i
--- NOTE | 2022-02-03 19:56 | PC.NURSE ---
pt remains confused and requesting to leave, crawling out on bed, redirected back to bed. bed alarm engaged level 2 and charge nurse Heidi BHANDARI notified.
[2022-02-03] MEDS: TAMSULOSIN HCL 0.4 MG CAPSULE PO (20:56)
[2022-02-03] MEDS: INSULIN GLARGINE (*BKC) 100 UNITS/ML 20 UNITS SUB-Q (21:15)
[2022-02-03 22:19] LABS: Glucose Point of Care 149 mg/dl (65-105)
[2022-02-04] VITALS (12 sets, daily range): BP systolic 101–125; BP diastolic 51–85; PULSE 62–89; RESP 20; TEMP 36.1–36.9; O2SAT 96–98
--- NOTE | 2022-02-04 | ECHO_ITS ---
Patient Info Name: Antonio Fang Age: 86 years : 1935 Gender: Male Ht: 74 in Wt: 194 lbs BSA: 2.15 m2 HR: 73 bpm BP: 123 / 66 mmHg Technical Quality: Fair Exam Date: 02/04/2022 2:25 PM Exam Location: [facility] Pulmonary Patient Status: Outpatient Admit Date: 02/01/2022 Staff Ordering Physician: Frank Marin MD Angle Shear Set Up Operator: Salina Darby RDCS Attending Provider: James Lance MD Exam Type: CA echo doppler color flow Study Info Indications R55 - Syncope and collapse Complete two-dimensional, color flow and Doppler transthoracic echocardiogram is performed. Summary 1. Complete two-dimensional, color flow and Doppler transthoracic echocardiogram is performed. 2. Left ventricular chamber dimension is normal. 3. Left ventricular systolic function is normal, estimated at 55-60%. 4. There is mildly increased left ventricular wall thickness. 5. The left ventricular diastolic function is grade I diastolic dysfunction. 6. E/e' 7 is not elevated. 7. There is mild aortic valve sclerosis. 8. No pulmonary hypertension, estimated pulmonary arterial systolic pressure is 17 mmHg. Left Ventricle E/e' 7 is not elevated. Left ventricular chamber dimension is normal. Left ventricular systolic function is normal, estimated at 55-60%. There is mildly increased left ventricular wall thickness. The left ventricular diastolic function is grade I diastolic dysfunction. Right Ventricle Right ventricular chamber dimension is normal. Right ventricular systolic function is normal. Left Atria Left atrial chamber dimension is normal. Right Atria Right atrial chamber dimension is normal. Aortic Valve The aortic valve is trileaflet. There is mild aortic valve sclerosis. There is no aortic valve stenosis. There is no aortic valve regurgitation. Pulmonic Valve There is no pulmonic regurgitation. Mitral Valve There is no mitral valve stenosis. There is no mitral valve regurgitation. Tricuspid Valve There is no tricuspid valve regurgitation. No pulmonary hypertension, estimated pulmonary arterial systolic pressure is 17 mmHg. Pericardium/Pleural There is no pericardial effusion. Inferior Vena Cava Normal inferior vena cava with >50% collapse upon inspiration consistent with normal right atrial pressure, 5 mmHg. Aorta The aortic root size at the sinus of Valsalva is normal. Left Ventricular Outflow Tract Name Value Normal LVOT 2D LVOT Diameter 2.0 cm LVOT Doppler LVOT Peak Gradient 6 mmHg LVOT Mean Gradient 3 mmHg LVOT VTI 26 cm LVOT VTI/AV VTI Ratio 1.1 LVOT Stroke Volume 80 ml LVOT CO 6.2 l/min LVOT CI 2.9 l/min/m2 Pulmonic Valve Name Value Normal RVOT Doppler
--- NOTE | 2022-02-04 00:22 | PC.NURSE ---
zyprexa 5mg IM order r/t agitation
[2022-02-04] MEDS: OLANZapine 10 MG INJ VIAL 5 MG IM (00:34)
--- NOTE | 2022-02-04 05:08 | ECG_ITS ---
Measurements Intervals Jackson Rate: 82 P: -12 NM: 177 QRS: 93 QRSD: 136 T: -12 QT: 401 QTc: 469 Interpretive Statements SINUS RHYTHM RIGHT BUNDLE BRANCH BLOCK BASELINE ARTIFACT- I, II, III, AVR, AVL, AVF ABNORMAL ECG COMPARED TO ECG 02/01/2022 20:02:46 NO SIGNIFICANT CHANGES Electronically Signed On 02-04-2022 6:26:33 PETROLEUM SAMPLER by Santiago Bateman D.O.
--- NOTE | 2022-02-04 05:37 | PC.NURSE ---
sinus rhythm with RBBB block, no change from prior ekg on admission.
--- NOTE | 2022-02-04 06:27 | PC.NURSE ---
pt continues to be agitated calling for medication for agitation
--- NOTE | 2022-02-04 06:29 | PC.NURSE ---
Haldol 5 mg IM ordered for pt.
[2022-02-04 06:36] LABS: Basophils Absolute Auto 0.1 K/mm3 (0.0-0.1); Basophils Percent Auto 0.5 % (0.2-1.2); Eosinophils Absolute Auto 0.2 K/mm3 (0-0.3); Eosinophils Percent Auto 1.3 % (0-4.4); Hematocrit 38.1 % (42.0-52.0); Hemoglobin 12.8 g/dL (14.0-18.0); Immature Granulocyte Absolute 0.05 K/mm3 (0.00-0.031); Immature Granulocyte Percent A 0.4 % (0-0.5); Lymphocytes Absolute Auto 2.46 K/mm3 (0.9-3.2); Lymphocytes Percent Auto 19.9 % (18.3-44.2); Mean Corpuscular HGB Conc 33.6 g/dl (32-36); Mean Corpuscular Hemoglobin 31.9 pg (26-34); Mean Platelet Volume 9.4 fl (7.4-10.4); Monocytes Absolute Auto 1.2 K/mm3 (0.1-0.6); Monocytes Percent Auto 9.6 % (2.6-8.5); Neutrophils Absolute Auto 8.5 K/mm3 (1.3-6.7); Neutrophils Percent Auto 68.3 % (45.5-73.1); Platelet Count Result 287 k/mm3 (150-375); Red Blood Count 4.01 M/mm3 (4.6-6.20); Red Cell Distribution Width 12.8 % (11.5-14.5); White Blood Count 12.4 K/mm3 (4.5-10.0)
[2022-02-04] MEDS: HALOPERIDOL LACTATE 5 MG/ML VIAL IM (06:39)
[2022-02-04 06:44] LABS: Anion Gap 13 mmol/L (8-16); Blood Urea Nitrogen 17 mg/dL (9-20); Calcium 8.9 mg/dL (8.4-10.2); Carbon Dioxide 24 mmol/L (22-30); Chloride 102 mmol/L (98-107); Estimated CRCL calculation 51 ml/min; Estimated Glomerular Filt Rate > 60; Glucose 70 mg/dL (65-110); Potassium 3.6 mmol/L (3.4-5.0); Sodium 139 mmol/L (137-145)
[2022-02-04 06:49] LABS: Iron 47 ug/dL (49-181)
[2022-02-04 06:58] LABS: Percent Iron Saturation 18 % (20-50)
[2022-02-04 07:03] LABS: Vitamin D 25 Hydroxy 24.3 ng/mL
[2022-02-04 07:38] LABS: Glucose Point of Care 72 mg/dl (65-105)
[2022-02-04 07:42] LABS: Folic Acid 17.9 ng/mL (2.76->20)
[2022-02-04] MEDS: LIDOCAINE 5% PATCH 2 PATCH TRANSDERM (08:19)
[2022-02-04] MEDS: GABAPENTIN 100 MG CAPSULE PO ×2 (08:19→17:25)
[2022-02-04] MEDS: EZETIMIBE 10 MG TABLET PO (08:19)
[2022-02-04] MEDS: TAMSULOSIN HCL 0.4 MG CAPSULE PO ×2 (08:20→22:09)
[2022-02-04] MEDS: SIMVASTATIN 10 MG TABLET PO (08:20)
[2022-02-04] MEDS: METOPROLOL TARTRATE 25 MG TABLET BY MOUTH (08:20)
[2022-02-04] MEDS: LOSARTAN POTASSIUM 50 MG TABLET PO (08:20)
[2022-02-04] MEDS: PANTOPRAZOLE 40 MG TABLET PO (08:20)
[2022-02-04] MEDS: metFORMIN HCL 500 MG TABLET PO (08:20)
[2022-02-04] MEDS: SERTRALINE HCL 25 MG TABLET PO (08:20)
[2022-02-04 08:40] LABS: Glucose Point of Care 125 mg/dl (65-105)
--- NOTE | 2022-02-04 10:19 | PCOTNOTE ---
Attempted to see patient this am, however patient just getting brought back to room from testing.
[2022-02-04 11:38] LABS: Glucose Point of Care 131 mg/dl (65-105)
--- NOTE | 2022-02-04 12:48 | PM.IMPN ---
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 Check MMA start B12 supplement (2) Abnormal chest xray: Code(s): R93.89 - Abnormal findings on diagnostic imaging of other specified body structures Status: Acute Assessment and Plan: History of dementia and intermittent severe coughing, especially while eating, suggest the possibility of aspiration doubt acute pneumonia CT chest showed diffuse lung disease likely a combination of mild emphysema and chronic interstitial lung disease in the pattern of usual interstitial pneumonia. modified barium swallow With trace laryngeal penetration with on controlled thin liquids suggesting ongoing aspiration. mildly thick liquids and regular diet. Echo 02/04/2022: EF 55-60% grade 1 diastolic dysfunction no valvular abnormality (3) Frequent falls: Code(s): R29.6 - Repeated falls Status: Acute Assessment and Plan: suspect due to combination of diabetic neuropathy, medications side effects, dementia, and deconditioning He is not dehydrated or orthostatic (4) Acute urinary retention: Code(s): R33.8 - Other retention of urine Status: Acute Assessment and Plan: drug side effect from donepezil likely with probable underlying BPH, given his hx February 03 discontinued donepezil Continue consider voiding trial in 24-48 hours (5) Type 2 diabetes mellitus with diabetic neuropathy: Code(s): E11.40 - Type 2 diabetes mellitus with diabetic neuropathy, unspecified Status: Acute Assessment and Plan: February 03 reduce Lantus from 74-20 units due to hypoglycemia and also discontinue glipizide continue bedside glucose monitoring with sliding scale as needed (6) Anemia: Code(s): D64.9 - Anemia, unspecified Status: Acute Assessment and Plan: February 03 hemoglobin 12.7 and relatively chronic check occult blood, iron, B12 (7) PAF (paroxysmal atrial fibrillation): Code(s): I48.0 - Paroxysmal atrial fibrillation Status: Acute Assessment and Plan: by history (8) CAD (coronary artery disease): Code(s): I25.10 - Atherosclerotic heart disease of [place] coronary artery without angina pectoris Status: Acute Assessment and Plan: by history (9) Benign prostatic hyperplasia with lower urinary tract symptoms: Code(s): N40.1 - Benign prostatic hyperplasia with lower urinary tract symptoms Status: Acute (10) History of open heart surgery: Code(s): Z98.890 - Other specified postprocedural states Status: Acute Subjective Date/time seen: 02/04/22 12:48 Interval history: F/U TRIP AND FALL AT HOME : no overnight event.s patient remain confused. he has chornic intermittent cough. he fell at home and was down, found by bystanders. no chest pain or sob. he remains confused. having diffuclty urinatin and fiore was placed. Review of Systems Review of Systems: All systems reviewed & are unremarkable except as noted in HPI and below Exam Narrative: Elderly gentleman resting in his hospital bed in no acute distress. confused looking, Pleasant and cooperative. Had some difficulty with word finding but otherwise speech was clear and coherent. Affect was a bit blunted. Sclerae nonicteric. Oral mucosa pink and moist. Extraocular movements intact. Pupils equal round reactive to light. Neck without JVD mass or thyromegaly. Chest was slightly coarse breath sounds at bases, diminisehd breath sounds bilaterlaly Heart normal S1 and S2 with rate regular and no audible clicks gallops murmurs or rubs abdomen bowel sounds present soft nontend
[2022-02-04 16:17] LABS: Glucose Point of Care 99 mg/dl (65-105)
[2022-02-04] MEDS: metFORMIN HCL 500 MG TABLET 1000 MG PO (17:25)
[2022-02-04] MEDS: ACETAMINOPHEN 325 MG TABLET 650 MG PO (18:18)
[2022-02-04] MEDS: INSULIN GLARGINE (*BKC) 100 UNITS/ML 10 UNITS SUB-Q (22:04)
[2022-02-04 23:06] LABS: Glucose Point of Care 97 mg/dl (65-105)
[2022-02-05] VITALS (7 sets, daily range): BP systolic 107–125; BP diastolic 56; PULSE 66–80; RESP 12–20; TEMP 36.1–36.6; O2SAT 96–97
[2022-02-05 06:39] LABS: Hematocrit 45.8 % (42.0-52.0); Hemoglobin 14.6 g/dL (14.0-18.0); Mean Corpuscular HGB Conc 31.9 g/dl (32-36); Mean Corpuscular Hemoglobin 32.1 pg (26-34); Mean Corpuscular Volume 100.7 fl (80-100); Mean Platelet Volume 9.5 fl (7.4-10.4); Platelet Count Result 369 k/mm3 (150-375); Red Blood Count 4.55 M/mm3 (4.6-6.20); Red Cell Distribution Width 13.2 % (11.5-14.5); White Blood Count 12.3 K/mm3 (4.5-10.0)
[2022-02-05 06:49] LABS: Alanine Aminotransferase 24 U/L (6-50); Albumin Level 4.8 g/dL (3.5-5.1); Alkaline Phosphatase 63 U/L (38-126); Anion Gap 15 mmol/L (8-16); Aspartate Amino Transferase 39 U/L (17-59); Blood Urea Nitrogen 20 mg/dL (9-20); Calcium 9.4 mg/dL (8.4-10.2); Carbon Dioxide 23 mmol/L (22-30); Chloride 101 mmol/L (98-107); Estimated CRCL calculation 47 ml/min; Estimated Glomerular Filt Rate 58; Glucose 181 mg/dL (65-110); Magnesium 2.3 mg/dL (1.6-2.3); Potassium 3.8 mmol/L (3.4-5.0); Sodium 139 mmol/L (137-145)
[2022-02-05 07:56] LABS: Glucose Point of Care 208 mg/dl (65-105)
[2022-02-05] MEDS: INSULIN ASPART (*BKC) 100 UNITS/ML SUB-Q ×2 (09:04→11:58)
[2022-02-05] MEDS: SERTRALINE HCL 25 MG TABLET PO (09:06)
[2022-02-05] MEDS: LIDOCAINE 5% PATCH 2 PATCH TRANSDERM (09:06)
[2022-02-05] MEDS: PANTOPRAZOLE 40 MG TABLET PO (09:06)
[2022-02-05] MEDS: SIMVASTATIN 10 MG TABLET PO (09:06)
[2022-02-05] MEDS: LOSARTAN POTASSIUM 50 MG TABLET PO (09:06)
[2022-02-05] MEDS: metFORMIN HCL 500 MG TABLET PO (09:06)
[2022-02-05] MEDS: EZETIMIBE 10 MG TABLET PO (09:06)
[2022-02-05] MEDS: GABAPENTIN 100 MG CAPSULE PO (09:06)
[2022-02-05] MEDS: TAMSULOSIN HCL 0.4 MG CAPSULE PO (09:07)
[2022-02-05] MEDS: ACETAMINOPHEN 325 MG TABLET 650 MG PO (09:07)
[2022-02-05] MEDS: METOPROLOL TARTRATE 25 MG TABLET BY MOUTH (09:08)
[2022-02-05] MEDS: ARTIFICIAL TEARS OPHTH SOLN 15 ML BOTTLE 1 DROP EACH EYE (11:33)
[2022-02-05 11:55] LABS: Glucose Point of Care 267 mg/dl (65-105)
--- NOTE | 2022-02-05 13:38 | PM.DS ---
DS: Admitting Diagnosis Discharge Date 02/05/2022 Admitting Diagnosis confusion and fall DS: Discharge Diagnosis Discharge Diagnosis (1) Dementia: Code(s): F03.90 - Unspecified dementia, unspecified severity, without behavioral disturbance, psychotic disturbance, mood disturbance, and anxiety Status: Acute (2) Abnormal chest xray: Code(s): R93.89 - Abnormal findings on diagnostic imaging of other specified body structures Status: Acute (3) Frequent falls: Code(s): R29.6 - Repeated falls Status: Acute (4) Acute urinary retention: Code(s): R33.8 - Other retention of urine Status: Acute (5) Type 2 diabetes mellitus with diabetic neuropathy: Code(s): E11.40 - Type 2 diabetes mellitus with diabetic neuropathy, unspecified Status: Acute (6) Anemia: Code(s): D64.9 - Anemia, unspecified Status: Acute (7) PAF (paroxysmal atrial fibrillation): Code(s): I48.0 - Paroxysmal atrial fibrillation Status: Acute (8) CAD (coronary artery disease): Code(s): I25.10 - Atherosclerotic heart disease of [place] coronary artery without angina pectoris Status: Acute (9) Benign prostatic hyperplasia with lower urinary tract symptoms: Code(s): N40.1 - Benign prostatic hyperplasia with lower urinary tract symptoms Status: Acute (10) History of open heart surgery: Code(s): Z98.890 - Other specified postprocedural states Status: Acute DS: Summary Hospital Course Hospital Course: # Dementia: 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 Check MMA start B12 supplement. # Abnormal chest xray: ? History of dementia and intermittent severe coughing, especially while eating, suggest the possibility of aspiration ?doubt acute pneumonia ?CT chest? showed diffuse lung disease likely a combination of mild emphysema and chronic interstitial lung disease in the pattern of usual interstitial pneumonia. ?modified barium swallow? With trace laryngeal penetration with on controlled thin liquids suggesting ongoing aspiration.? mildly thick liquids and regular diet. Echo 02/04/2022: EF 55-60% grade 1 diastolic dysfunction no valvular abnormality on modfied diet. which will be continued. could be chronic aspiration related. will have him fu with Pulmonary as op basis as well. # Frequent falls: ?suspect due to combination of diabetic neuropathy, medications side effects,? dementia, and deconditioning He is not dehydrated or orthostatic # Acute urinary retention: ?drug side effect from donepezil likely with? probable underlying BPH, given his hx reently increased aricept. will lower the dose at discahrge. fiore was placed. will do void trial at discharge and unless he is not able to void, will have him fu with urology. # Type 2 diabetes mellitus with diabetic neuropathy: ?February 03 reduce Lantus from 74-20 units due to hypoglycemia and also discontinue glipizide ?continue bedside glucose monitoring with sliding scale as needed his a1c comes back at 8.7. his diet is not carb controlled at home. will resume home dose, no hypoglcyemia noted during the hospital stay. he is advised to make a log of blood sugar and follow up with pcp for further direction. # Anemia: ?February 03 hemoglobin? 12.7 and relatively chronic ?check occult blood, iron, B12 # PAF: ?by history # CAD (coronary artery disease): ?by history s/p cabg # Benign prostatic hyperplasia with lower urinary tract symptoms: Time Spent with Patient Time attestation: Total time spent providing and/or coordinating discharge services: 45 mins Exam Narrative: Elderly gentleman resting in his hospital bed in no acute distress. confused looking, Pleasant and cooperative. Had some difficulty with word finding but otherwise speech was clear and coherent. Affect was a bit blunted. Sclerae nonicteric. Oral mucosa pink
--- NOTE | 2022-02-05 16:02 | PCSTNOTE ---
Please refer to the Bedside Swallow Evaluation in the EMR. Please note, silent aspiration cannot be ruled out at bedside.
--- NOTE | 2022-02-05 16:08 | PCSTNOTE ---
02/04/22: Please refer to the Modified Barium Swallow Evaluation in the EMR.
[2022-02-08 08:56] LABS: Methylmalonic Acid 149 nmol/L (87-318)
== END 2022-02-05 17:09 | disposition home health service (06) ==
LOC: ANHED 02-02 01:00 → ANH3MEDSUR 02-02 01:49
PROVIDERS: Family Medicine; Internal Medicine; Physician Assistant; Admitting Provider Internal Medicine; Emergency Provider General Practice; PCP Family Medicine; Visit Provider Internal Medicine
DX: F03.90 Unspecified dementia, unspecified severity, without behavioral disturbance, psychotic disturbance, mood disturbance, and anxiety (principal); R93.89 Abnormal findings on diagnostic imaging of other specified body structures; R29.6 Repeated falls; R33.8 Other retention of urine; D64.9 Anemia, unspecified; I48.0 Paroxysmal atrial fibrillation; I25.10 Atherosclerotic heart disease of native coronary artery without angina pectoris; Z95.1 Presence of aortocoronary bypass graft; N40.1 Benign prostatic hyperplasia with lower urinary tract symptoms; E11.40 Type 2 diabetes mellitus with diabetic neuropathy, unspecified; R41.0 Disorientation, unspecified; Z98.890 Other specified postprocedural states; M25.511 Pain in right shoulder; S09.90XA Unspecified injury of head, initial encounter; W18.30XA Fall on same level, unspecified, initial encounter; M75.01 Adhesive capsulitis of right shoulder; K21.9 Gastro-esophageal reflux disease without esophagitis; I12.9 Hypertensive chronic kidney disease with stage 1 through stage 4 chronic kidney disease, or unspecified chronic kidney disease; E11.22 Type 2 diabetes mellitus with diabetic chronic kidney disease; N18.30 Chronic kidney disease, stage 3 unspecified; Z20.822 Contact with and (suspected) exposure to COVID-19; J98.11 Atelectasis; F10.90 Alcohol use, unspecified, uncomplicated; F32.A Depression, unspecified; R94.31 Abnormal electrocardiogram [ECG] [EKG]; I67.2 Cerebral atherosclerosis; R90.82 White matter disease, unspecified; M47.812 Spondylosis without myelopathy or radiculopathy, cervical region; I35.8 Other nonrheumatic aortic valve disorders; J98.4 Other disorders of lung; K44.9 Diaphragmatic hernia without obstruction or gangrene; K80.20 Calculus of gallbladder without cholecystitis without obstruction; Z79.84 Long term (current) use of oral hypoglycemic drugs; Z87.891 Personal history of nicotine dependence; Z79.52 Long term (current) use of systemic steroids; Z79.4 Long term (current) use of insulin; Z79.899 Other long term (current) drug therapy; Z82.49 Family history of ischemic heart disease and other diseases of the circulatory system
CPT/HCPCS: 36415; 51702; 70450; 71045; 71250; 72125; 73030; 80048; 80053; 81003; 82306; 82607; 82746; 82948; 83036; 83540; 83550; 83690; 83735; 83921; 84443; 84484; 85025; 85027; 85610; 85730; 92610; 92611; 93005; 93306; 93880; 96360; 96372; 97110; 97161; 97165; 97530; 97535; 99285; A9270; G0378; J1630; J1815; J7040; U0003; U0005

== ENCOUNTER 2022-06-14 14:18 | Outpatient (CLI) | payer MEDICARE, SELFPAY ==
[2022-06-14 15:15] LABS: Alanine Aminotransferase 25 U/L (6-50); Albumin Level 4.7 g/dL (3.5-5.1); Alkaline Phosphatase 55 U/L (38-126); Anion Gap 9 mmol/L (8-16); Aspartate Amino Transferase 29 U/L (17-59); Bilirubin,Total 0.6 mg/dL (0.2-1.3); Blood Urea Nitrogen 17 mg/dL (9-20); Calcium 9.3 mg/dL (8.4-10.2); Carbon Dioxide 24 mmol/L (22-30); Chloride 102 mmol/L (98-107); Creatine Kinase 67 U/L (55-170); Estimated Glomerular Filt Rate 58; Glucose 307 mg/dL (65-110); Potassium 4.4 mmol/L (3.4-5.0); Sodium 135 mmol/L (137-145)
[2022-06-14 15:28] LABS: Hemoglobin A1C 9.6 % (<5.7); Rheumatoid Factor 12.1 IU/ML (<12)
[2022-06-18 04:37] LABS: Aldolase 4.3 U/L (<=8.1)
[2022-06-18 21:04] LABS: Anti Cyclic Citrullinated Pept <16 Units (<20)
[2022-06-19 11:23] LABS: ANA Cascade Screen Negative (Negative)
[2022-06-21 01:23] LABS: ANCA Screen Negative (Negative)
== END 2022-06-14 14:19 | disposition home or self-care (01) ==
PROVIDERS: PCP Family Medicine; Referring Provider Physician Assistant; Visit Provider Internal Medicine Pulmonary Disease
DX: E11.29 Type 2 diabetes mellitus with other diabetic kidney complication (principal); E11.40 Type 2 diabetes mellitus with diabetic neuropathy, unspecified; N18.30 Chronic kidney disease, stage 3 unspecified
CPT/HCPCS: 36415; 80053; 82085; 82550; 83036; 86036; 86038; 86200; 86331; 86430; 86606; 86609

== ENCOUNTER 2022-08-10 17:51 | Emergency (ER) | payer MEDICARE, SELFPAY ==
--- NOTE | ~2022-08-10 | CT_ITS ---
EXAMINATION: CT brain wo con DATE: 08/10/2022 18:58 INDICATION: Fall, Head Injury . TECHNIQUE: Computed tomography (CT) of the head was performed without intravenous contrast. The mA wa s adjusted according to patient size. Iterative reconstruction technique was employed. The dose-lengt h product was 605.33 mGy-cm. COMPARISON: 02/01/2022. FINDINGS: No acute intracranial hemorrhage or extra-axial fluid collection. No hydrocephalus, mass, or herniation. No acute ischemic infarct. Unremarkable dural venous sinus attenuation. No acute osseous abnormality. Bilateral maxillary air-fluid levels, mild ethmoid and bilateral frontal mucosal thickening, trace ri ght mastoid fluid, the remaining aerated spaces are clear. Moderate atrophy and chronic white matter change. Atherosclerotic intracranial calcification. Bilater al lens replacements. IMPRESSION: No acute intracranial process. Paranasal sinus findings may represent acute sinusitis, in the appropr iate clinical context Reviewed, dictated and finalized at location K. IMPRESSION: No acute intracranial process. Paranasal sinus findings may represent acute sin usitis, in the appropriate clinical context
--- NOTE | ~2022-08-10 | CT_ITS ---
EXAMINATION: CT facial & cervical spine wo DATE: 08/10/2022 18:58 INDICATION: head injury, facial injury TECHNIQUE: Computed tomography (CT) of the maxillofacial region and cervical spine was performed with out intravenous contrast. Automated exposure control and iterative reconstruction technique were empl oyed. The dose-length product was 427.51 mGy-cm. COMPARISON: None FINDINGS: CERVICAL: Vertebral Body Alignment: Intact. Craniocervical and atlantoaxial alignment: Moderate degenerative change. Alignment intact. Osseous structures/fracture: No evidence of a lytic or blastic process in the visualized spine. No e vidence of acute fracture. Cervical soft tissues: The paraspinal soft tissues planes are maintained. 2.7 cm heterogeneous left t hyroid nodule. Biapical pleural scarring. Degenerative changes: Multilevel degenerative disc disease, severe at C4-5. Multilevel severe left-si ded neural foraminal narrowing. Multilevel severe facet arthropathy. No severe central canal stenosis . FACE: Soft Tissues: Bifrontal soft tissue contusions. Facial bones: Depressed anterior nasal bone fracture. Nondisplaced fracture of the maxillary spine.. No lytic or blastic process. Eyes: The globes are intact. Bilateral lens replacements. The soft tissue planes of the orbits are m aintained. Paranasal Sinuses: Bilateral maxillary mucosal thickening with air-fluid levels. Mild mucosal thicken ing in the frontal and ethmoid air cells. Trace right mastoid fluid The visualized aerated spaces are clear. Foreign Bodies: No radiopaque foreign bodies. Other Findings: None. IMPRESSION: No acute fracture or traumatic malalignment in the cervical spine. Mildly depressed anterior nasal stephanie ne fracture. Nondisplaced maxillary spine fracture. Bilateral maxillary fluid levels may represent ac hughes sinusitis versus mucosal hemorrhage from nasal trauma. Reviewed, dictated and finalized at location K. IMPRESSION: No acute fracture or traumatic malalignment in the cervical spine. Mildly depre ssed anterior nasal bone fracture. Nondisplaced maxillary spine fracture. Bilat eral maxillary fluid levels may represent acute sinusitis versus mucosal hemorr carmina from nasal trauma.
[2022-08-10 17:55] VITALS: BP 161/91; PULSE 82; RESP 18; TEMP 36.8; O2SAT 99
[2022-08-10] MEDS: TETANUS,DIPHTHERIA,AC PERTUSSIS ADULT (0.5 ML) BOOSTRIX IM (19:02)
--- NOTE | 2022-08-10 19:15 | ED.FALL ---
HPI - Fall General Chief Complaint: Fall Stated Complaint: fall Time Seen by Provider: 08/10/22 18:31 Source: patient, family, RN notes reviewed and old records reviewed Mode of arrival: wheelchair Limitations: dementia History of Present Illness HPI Narrative: This is a 86 year old male with history of DM, hypertension, hyperlipidemia who presents for evaluation of facial injury s/p fall. Patient states he tripped over his dog and he fell down a couple of steps. He denies LOC, headache, dizziness, nausea or vomiting. He reports mild neck pain. He was found to have abrasion to forehead and nasal brigde. He is unsure of his last tetanus. He denies back pain, chest pain, extremity pain. Related Data Allergies Allergy/AdvReac Type Severity Reaction Status Date / Time No Known Allergies Allergy Mild Verified 08/10/22 17:59 Review of Systems Constitutional: Constitutional: Denies weakness Cardiovascular: Cardiovascular: Denies syncope, Denies rapid heart rate, Denies irregular heart rhythm, Denies leg edema and Denies dyspnea Respiratory: Respiratory: Denies chest congestion, Denies hemoptysis, Denies excessive phlegm production and Denies dyspnea Gastrointestinal: Gastrointestinal: Denies abdominal pain, Denies hematochezia, Denies diarrhea and Denies vomiting Genitourinary: Genitourinary: Denies hematuria, Denies dysuria, Denies penile discharge and Denies testicular pain Musculoskeletal: Musculoskeletal: Denies joint swelling, Denies loss of height and Denies muscle weakness Neurologic: Denies syncope, Denies focal weakness and Denies weakness PMFSH Past Medical History Medical History 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 CAD (coronary artery disease) Chronic GERD CKD (chronic kidney disease), stage III Coronary artery disease involving [place] coronary artery of [place] heart Dementia Dementia Depression Hemoglobin A1c greater than 9.0% A1c = 10.4 04/10/20 HLD (hyperlipidemia) HTN (hypertension) PAF (paroxysmal atrial fibrillation) 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, unspecified Type 2 diabetes mellitus with other diabetic kidney complication Surgical History Surgical History H/O hernia repair S/P CABG (coronary artery bypass graft) Family History Family History Mother Family history of diabetes mellitus in first degree relative Hypertension Father Family history of coronary artery disease Other Family history of thyroid disease Social History Social History Smoking packs per day: 2 Smoking cigarettes per day: 40.0 Years smoked: 30 Smoking pack-years: 60.00 Smoking status: Former smoker Tobacco type: cigarettes Second hand tobacco smoke exposure: No Smoking end date: 02/15/92 Alcohol intake: current Drinks per week: 3 Substance use: never Substance use type: does not use Lack of Transportation: No Lack of Food: Never True Current Housing: I Have Housing Concerned About Future Housing: No Difficulty Paying Gas/Electric Bills: No Difficulty Paying for Meds: No Currently Unemployed: No Education: High School Diploma/GED Difficulty w/ Childcare or Family Care: No Living arrangements: with family Occupation/Education: retired Gender identity (if verbalized by the patient): Male Sexual Orientation (if Verbalized by the Patient): Straight or Heterosexual Spiritual care concerns: No Exam Const: General: no acute distress and alert Nutritional Appearance: well nourished Orientation/consciousness: patient oriented x3 HENMT: Ears: external ears normal Mouth: Yes Normal oral and palatal mucosa present, Yes lip normal and Yes moist
--- NOTE | 2022-08-10 19:21 | PC.NURSE ---
1904- Assumed pt care from ELISABET Rico
== END 2022-08-10 21:05 | disposition home or self-care (01) ==
PROVIDERS: Emergency Provider General Practice; PCP Family Medicine
DX: S02.2XXB Fracture of nasal bones, initial encounter for open fracture (principal); S00.81XA Abrasion of other part of head, initial encounter; I25.10 Atherosclerotic heart disease of native coronary artery without angina pectoris; I12.9 Hypertensive chronic kidney disease with stage 1 through stage 4 chronic kidney disease, or unspecified chronic kidney disease; E11.22 Type 2 diabetes mellitus with diabetic chronic kidney disease; N18.30 Chronic kidney disease, stage 3 unspecified; F03.90 Unspecified dementia, unspecified severity, without behavioral disturbance, psychotic disturbance, mood disturbance, and anxiety; Z87.891 Personal history of nicotine dependence; Z23 Encounter for immunization; W01.0XXA Fall on same level from slipping, tripping and stumbling without subsequent striking against object, initial encounter
CPT/HCPCS: 12011; 70450; 70486; 72125; 90471; 90715; 99284

== ENCOUNTER 2022-08-22 13:13 | Outpatient (CLI) | payer MEDICARE, SELFPAY ==
--- NOTE | ~2022-08-22 | CT_ITS ---
EXAMINATION:CT chest high resolution wo co DATE: 08/22/2022 13:39 INDICATION: Interstitial lung disease. TECHNIQUE: Computed tomography (CT) of the chest was performed without intravenous contrast. Automate d exposure control and iterative reconstruction technique were employed. The dose-length product (DLP ) was 246.88 mGy-cm. COMPARISON: Chest CT 02/04/2022 FINDINGS: There is widespread septal thickening in the lungs with a peripheral and inferior prominenc e associated with relatively mild groundglass opacities. There is peripheral honeycombing involving a ll lobes. There is a pneumatocele in left lower lobe. Calcified right lung nodules and calcified righ t hilar lymph nodes are consistent with old granulomatous disease. No pleural effusion. There are nod ules in the thyroid measuring up to 2.0 cm. The thyroid extends into the superior mediastinum. The he art size is normal. There are coronary artery calcifications. There are changes of coronary artery by pass grafting. There is mild subcarinal lymphadenopathy, likely reactive. There is a small sliding hi atal hernia. There is diffuse hepatic steatosis. Calcifications in the spleen are consistent with old granulomatous disease. There are gallstones in the gallbladder. There is severe thoracic spondylosis . IMPRESSION: 1. Stable diffuse lung disease, likely a combination of mild emphysema and chronic interstitial lung disease in a pattern of usual interstitial pneumonia (UIP). 2. Small sliding hiatal hernia. 3. Cholelithiasis. 4. Multinodular goiter. Further evaluation with ultrasound may not be needed given the patient's age. Reviewed, dictated and finalized at location E. IMPRESSION: 1. Stable diffuse lung disease, likely a combination of mild emphysema and [place] interstitial lung disease in a pattern of usual interstitial pneumonia (UIP ). 2. Small sliding hiatal hernia. 3. Cholelithiasis. 4. Multinodular goiter. Further evaluation with ultrasound may not be needed gi yousuf the patient's age.
[2022-08-22 14:30] VITALS: PULSE 82; O2SAT 95
[2022-08-22 14:35] VITALS: PULSE 93; O2SAT 93
[2022-08-22 14:45] VITALS: PULSE 87; O2SAT 95
--- NOTE | 2022-08-22 15:04 | HOMEO2EVAL ---
Evaluation was performed at [facility] Home Oxygen Evaluation RC: Home Oxygen (O2) Evaluation Start: 08/22/22 15:02 Freq: Status: Active Protocol: RPE Activity Type Activity Date Activity User E-sign Co-sign Detail Recorded Client Recorded Date Recorded By Document 08/22/22 14:30 ALLA [email or web address] 08/22/22 15:04 ALLA Document 08/22/22 14:35 ALLA [email or web address] 08/22/22 15:04 ALLA Document 08/22/22 14:45 ALLA [email or web address] 08/22/22 15:04 ALLA 08/22/22 08/22/22 08/22/22 14:30 14:35 14:45 Home O2 Evaluation [Oxygen] -Test Phase Resting Exercise Resting -Oxygen Delivery Room Air Room Air Room Air [Pulse Oximetry] -Pulse Oximetry (90-100 %) 95 93 95 [Pulse Rate] -Pulse Rate (60-100 beats/min) 82 93 87 [Evaluation] -Activity Tolerance Good [Exercise] -Ambulation Distance (feet) 300 -Ambulation Distance (meters) 91.43 [Comments] -Home Oxygen Evaluation Comments NO HOME O2 NEEDED AT THIS TIME. [Charges] -Treatment Charges O2 Evaluation - Outpatient
--- NOTE | 2022-08-22 15:05 | PCRCNOTE ---
HOME O2 EVAL FAXED TO [facility] OFFICE STAFF. NO HOME O2 NEEDED AT THIS TIME.
--- NOTE | 2022-08-23 10:19 | P.PCNPFT_ITS ---
PFT Procedure Performed PFT Procedure Performed Spirometry with Pre/Post Bronchodilator Plethysmography (Lung Vol) Diffusing Cap (DLCO) Flow Vol Loop PFT Interpretation Lung volumes were measured with the body plethysmography method. Lung volumes show a borderline low total lung capacity. The remaining lung volumes are unremarkable. Spirometry showed normal expiratory flow rates and a normal FEV1 to FVC ratio of 66%. Following administration of bronchodilator there was significant increase in the FEV1. Lung diffusion capacity is moderately reduced at 47% predicted. The flow volume loop is unremarkable. The significant response to bronchodilators may indicate underlying mild obstructive airway di sease. Clinical correlation advised. 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 Moderately reduced lung diffusion capacity.
== END 2022-08-22 13:14 | disposition home or self-care (01) ==
PROVIDERS: PCP Family Medicine; Visit Provider Internal Medicine Pulmonary Disease
DX: J84.9 Interstitial pulmonary disease, unspecified (principal); R94.2 Abnormal results of pulmonary function studies
CPT/HCPCS: 71250; 94060; 94618; 94726; 94729